=== PATIENT | male | born 1935 | race Hispanic/Latino ===

== ENCOUNTER 2016-08-13 10:14 | Observation (INO) | payer MEDICARE, BC ==
[2016-08-13 10:16] VITALS: BMI 21.6
--- NOTE | 2016-08-13 10:31 | ED PDOC ---
Arrival/HPI - General Chief Complaint: Weakness/Neurological Deficit Time Seen by Provider: 08/13/16 10:16 Historian: Patient - History of Present Illness Narrative History of Present Illness (Text): 08/13/16 10:27 A 81 year old male, whose past medical history includes chronic postherpetic neuralgia, Lymphoma on chemoradiation, CAD and anemia, is brought into the emergency department by daughter complaining of generalized fatigue. Patient notes nausea and mild shortness of breath last night. Daughter reports that she brought patient to the hospital because he said he was "going to pass out." Patient denies any fever, vomiting, urinary symptoms, chest pain or any other complaints. PMD: Dr. Bean/Dr. Jj 08/13/16 13:29 Time/Duration: Other (Last night) Symptom Course: Unchanged Quality: Other Context: Home Past Medical History - Provider Review Nursing Documentation Reviewed: Yes - Infectious Disease Hx of Infectious Diseases: None - Tetanus Immunization Tetanus Immunization: Unknown - Cardiac Hx Pacemaker: No - Pulmonary Hx Respiratory Disorders: No - Neurological Hx Paralysis: No - HEENT Hx HEENT Disorder: No Hx Deafness: Yes - Renal Hx Renal Disorder: No - Endocrine/Metabolic Hx Endocrine Disorders: No - Hematological/Oncological Hx Blood Transfusions: Yes Hx Blood Transfusion Reaction: No Hx Lymphoma: Yes - Integumentary Other/Comment: left lower leg multiple growths raised and discolored skin, right lower extremity multiple growths dry discolored skin, lower abd to right flank healing shingles, multiple open red areas to both lower legs, thin dry skin with multiple open red reas to arms as per past hx, now lle dry flakey skin with dry scab, multiple discoloratins ble - Musculoskeletal/Rheumatological Hx Musculoskeletal Disorders: Yes (NERVE DAMAGE R/T SHINGLES) - Gastrointestinal Hx Gastrointestinal Disorders: Yes (constipation) Hx Gastroesophageal Reflux: Yes (but does not take meds) Other/Comment: Colonoscopy and endoscopy in Feb 2015 which were normal;. Gallstones (daughter states patient takes ursodiol ) - Genitourinary/Gynecological Hx Genitourinary Disorders: No - Psychiatric Hx Anxiety: Yes Hx Depression: Yes Hx Emotional Abuse: No Hx Physical Abuse: No Hx Substance Use: No - Surgical History Other/Comment: Enlarged spleen - being seen by Dr Jj and Dr Mcgee - Anesthesia Hx Anesthesia Reactions: No Hx Malignant Hyperthermia: No - Suicidal Assessment Feels Threatened In Home Enviroment: No Family/Social History - Physician Review Nursing Documentation Reviewed: Yes Family/Social History: No Known Family HX Smoking Status: Never Smoked Hx Alcohol Use: Yes (SEVERAL BEERS PER WEEK) Frequency of alcohol use: Socially Hx Substance Use: No Hx Substance Use Treatment: No Allergies/Home Meds Allergies/Adverse Reactions: Allergies No Known Allergies Allergy (Verified 08/13/16 10:21) Home Medications: Home Meds Medication Instructions Recorded Confirmed Quetiapine Fumarate [Seroquel] 25 mg PO HS 03/17/15 08/13/16 Folic Acid 1 mg PO DAILY 11/29/15 08/13/16 Levothyroxine [Levoxyl] 0.025 mg PO DAILY 02/02/16 08/13/16 Mirtazapine [Remeron] 15 mg PO HS 02/02/16 08/13/16 Metoprolol Succinate [Metoprolol 25 mg PO DAILY 08/13/16 08/13/16 Succinate] Pregabalin [Lyrica] 25 mg PO TID 08/13/16 08/13/16 Review of Systems - Physician Review All systems were reviewed & negative as marked: Yes - Review of Systems Constitutional: Fatigue. absent: Weight Change, Fevers Eyes: absent: Vision Changes ENT: absent: Hearing Changes Respiratory: SOB, Cough. absent: Sputum Cardiovascular: ACKERMAN. absent: Chest Pain, Palpitations, Edema, Calf Pain, Orthopnea, Syncope Gastrointestinal: Nausea. absent: Abdominal Pain, Constipation, Diarrhea, Vomiting Genitourinary Male: absent: Dysuria, Frequency, Hematuria, Urinary Output Changes Musculoskeletal: Arthralgias Neurological: absent: Headache, Dizziness Endocrine: absent: Diaphoresis Hemo/Lymphatic: absent: Adenopathy Physical Exam Vital Signs Reviewed: Yes Vital Signs Temp Pulse Resp BP Pulse Ox 08/13/16 12:00 151/72 H 08/13/16 10:16 98.2 F 69 16 144/59 L 100 Temperature: Afebrile Blood Pressure: Normal Pulse: Regular Respiratory Rate: Normal Appearance: Positive for: Well-Appearing, Non-Toxic, Comfortable Pain Distress: None Mental Status: Positive for: Alert and Oriented X 3 - Systems Exam Head: Present: Atraumatic, Normocephalic Pupils: Present: PERRL Extroacular Muscles: Present: EOMI Conjunctiva: Present: Normal Mouth: Present: Moist Mucous Membranes Neck: Present: Normal Range of Motion Respiratory/Chest: Present: Good Air Exchange, Wheezes, Rales (at bases). No: Respiratory Distress, Accessory Muscle Use Cardiovascular: Present: Regular Rate and Rhythm, Normal S1, S2. No: Murmurs Abdomen: Present: Normal Bowel Sounds. No: Tenderness, Distention, Peritoneal Signs Back: Present: Normal Inspection Upper Extremity: Present: Normal Inspection. No: Cyanosis, Edema Lower Extremity: Present: Normal Inspection, NORMAL PULSES, Normal ROM. No: Edema, CALF TENDERNESS Neurological: Present: GCS=15, CN II-XII Intact, Speech Normal Skin: Present: Warm, Dry, Normal Color. No: Rashes Psychiatric: Present: Alert, Oriented x 3, Normal Insight, Normal Concentration Medical Decision Making ED Course and Treatment: 08/13/16 10:27 Impression: A 81 year old male with generalized fatigue. Patient notes nausea and shortness of breath last night but denies any fever, vomiting, urinary symptoms or chest pain. On exam, rales at bases. Differential Diagnosis included but are not limited to: Anemia vs. CHF vs. ACS vs. Electrolyte imbalance vs. UTI Plan: -- Chest xray -- EKG -- Labs -- Urinalysis -- Reassess and disposition Progress Notes: EKG shows NSR at 74 BPM with 1st degree AV block, PVCs, with no changes from prior on 02/02/16. Interpreted by me. 08/13/16 11:33 Labs reviewed. Trop x 1 negative. BNP elevated. Prior echo not available and I am concerned that this could be new onset/worsening chf due to fatigue and physical exam findings vs atypical presenting acs. Cxray read as normal but has rales on exam. Spoke to Dr. Jaffe who admits for PMD Dr. Bean and he agrees with tele observation. Consult placed to his turn laster Dr. Jj. - Lab Interpretations Lab Results: 08/13/16 10:30 08/13/16 10:30 Lab Results 08/13/16 10:30: WBC 2.8 L*, RBC 3.57, Hgb 10.8 L, Hct 30.1 L, MCV 84.3, MCH 30.3 , MCHC 35.9, RDW 15.0 H, Plt Count 132, MPV 8.7, Gran % 63.9, Lymph % (Auto) 23.1, Weld % (Auto) 11.2 H, Eos % (Auto) 1.4 L, Baso % (Auto) 0.4, Gran # 1.77, Lymph # 0.6 L, Weld # 0.3, Eos # 0.0, Baso # 0.01, PT 11.1, INR 1.03, APTT 31.7 H, Sodium 131 L, Potassium 4.8, Chloride 98, Carbon Dioxide 23, Anion Gap 15, BUN 14, Creatinine 0.8, Est GFR ( Amer) > 60, Est GFR (Non-Af Amer) > 60 , Random Glucose 108, Calcium 9.2, Phosphorus 3.2, Magnesium 1.9, Total Bilirubin 2.5 H, AST 28, ALT 27, Alkaline Phosphatase 87, Total Creatine Kinase < 20 L, Troponin I 0.02 D, NT-Pro-B Natriuret Pep 8480 H, Total Protein 6.4, Albumin 4.0, Globulin 2.5, Albumin/Globulin Ratio 1.6, Lipase 68, Blood Type O POSITIVE, Antibody Screen Negative, BBK History Checked Patient has bt I have reviewed the lab results: Yes - RAD Interpretation Radiology Orders: 08/13/16 10:26 CHEST PORTABLE [RAD] Stat - Medication Orders Current Medication Orders: Discontinued Medications Aspirin (Aspirin Chewable) 324 mg PO STAT STA Stop: 08/13/16 12:29 Last Admin: 08/13/16 12:48 Dose: 324 MG Furosemide (Lasix) 40 mg IVP STAT STA Stop: 08/13/16 11:36 Last Admin: 08/13/16 12:00 Dose: 40 MG MAR Blood Pressure Document 08/13/16 12:00 [facility] (Rec: 08/13/16 12:49 [facility] [id number]) Blood Pressure Blood Pressure (100/60-150/90) 151/72 IVP Administration Document 08/13/16 12:00 [facility] (Rec: 08/13/16 12:49 [facility] [id number]) Charges for Administration # of IVP Administrations 1 Ondansetron HCl (Zofran Inj) 4 mg IVP STAT STA Stop: 08/13/16 12:26 Last Admin: 08/13/16 12:48 Dose: 4 MG IVP Administration Document 08/13/16 12:48 [facility] (Rec: 08/13/16 12:48 [facility] [id number]) Charges for Administration # of IVP Administrations 1 - Scribe Statement The provider has reviewed the documentation as recorded by the Leviibhumaira Ruvalcaba Provider Scribe Attestation: All medical record entries made by the Scribe were at my direction and personally dictated by me. I have reviewed the chart and agree that the record accurately reflects my personal performance of the history, physical exam, medical decision making, and the department course for this patient. I have also personally directed, reviewed, and agree with the discharge instructions and disposition. Disposition/Present on Arrival - Present on Arrival Any Indicators Present on Arrival: No History of DVT/PE: No History of Uncontrolled Diabetes: No Urinary Catheter: No History of Decub. Ulcer: No History Surgical Site Infection Following: None - Disposition Have Diagnosis and Disposition been Completed?: Yes Diagnosis: CHF (congestive heart failure) Disposition: HOSPITALIZED Disposition Time: 10:27 Patient Plan: Observation Patient Problems: Current Active Problems Problem Status Diagnosed CHF (congestive heart failure) Acute Condition: FAIR
[2016-08-13 10:40] LABS: ADD MANUAL DIFF? NO
[2016-08-13 10:46] LABS: BASO # 0.01 K/mm3 (0.0-2.0); BASO % 0.4 % (0.0-3.0); EOS % 1.4 % (1.5-5.0); GRAN # 1.77 (1.4-6.5); GRAN % 63.9 % (50.0-68.0); HEMATOCRIT 30.1 % (42.0-52.0); LYMPH # 0.6 (1.2-3.4); LYMPH % 23.1 % (22.0-35.0); MEAN CELL VOLUME 84.3 fL (80.0-105.0); MEAN CORPUSCULAR HEMOGLOBIN 30.3 pg (25.0-35.0); MEAN CORPUSCULAR HGB CONC 35.9 g/dl (31.0-37.0); MEAN PLATELET VOLUME 8.7 fl (7.0-11.0); MONO # 0.3 (0.1-0.6); MONO % 11.2 % (1.0-6.0); PLATELET COUNT 132 10^3/uL (120.0-450.0)
[2016-08-13 10:54] LABS: ALB/GLOB RATIO 1.6 (1.1-1.8); ALKALINE PHOSPHATASE 87 U/L (38-133); ALT/SGPT 27 U/L (7-56); AST/SGOT 28 U/L (15-59); BILIRUBIN,TOTAL 2.5 mg/dL (0.2-1.3); BLOOD UREA NITROGEN 14 mg/dL (7-21); CALCIUM 9.2 mg/dL (8.4-10.5); CARBON DIOXIDE 23 mmol/L (21-33); CHLORIDE 98 mmol/L (98-107); GFR AFRICAN-AMERICAN > 60; GLUCOSE,RANDOM 108 mg/dL (70-110); LIPASE 68 U/L (23-300); MAGNESIUM 1.9 mg/dL (1.7-2.2); PHOSPHOROUS 3.2 mg/dL (2.5-4.5); POTASSIUM 4.8 mmol/L (3.6-5.0); SODIUM 131 mmol/L (132-148); TOTAL PROTEIN 6.4 g/dL (5.8-8.3); WHITE BLOOD COUNT 2.8 10^3/ul (4.5-11.0)
[2016-08-13 10:56] LABS: INR 1.03 (0.93-1.08); PARTIAL THROMBOPLASTIN TIME 31.7 Seconds (23.7-30.8)
[2016-08-13 11:05] LABS: TROPONIN I 0.02 ng/mL
--- NOTE | 2016-08-13 11:29 | RAD ---
HISTORY: ... COMPARISON: Comparison is made to the previous study dated 12/01/2015 FINDINGS: LUNGS: No evidence of new infiltrate or consolidation in the lungs. PLEURA: No significant pleural effusion identified, no pneumothorax apparent. CARDIOVASCULAR: Normal. OSSEOUS STRUCTURES: No significant abnormalities. VISUALIZED UPPER ABDOMEN: Normal. OTHER FINDINGS: None. IMPRESSION: No active disease.
--- NOTE | 2016-08-13 17:48 | CARD ---
APPROVED REPORT EKG Measurement Heart [id number] [id number] <Conclusion> Sinus rhythm with 1st degree AV block with frequent premature ventricular complexes Left ventricular hypertrophy with repolarization abnormality Abnormal ECG
[2016-08-13 18:30] LABS: URINE BILIRUBIN NEGATIVE (NEGATIVE); URINE BLOOD NEGATIVE (NEGATIVE); URINE GLUCOSE (UA) NEGATIVE (NEGATIVE); URINE KETONE NEGATIVE (NEGATIVE); URINE LEUKOCYTE ESTERASE NEGATIVE Leu/uL (NEGATIVE); URINE PROTEIN NEGATIVE mg/dL (<30 mg/dL); URINE UROBILINOGEN 0.2 E.U./dL (<1 E.U./dL)
[2016-08-13 18:31] LABS: URINE APPEARANCE CLEAR (CLEAR); URINE COLOR YELLOW (YELLOW)
[2016-08-13] MEDS ORDERED: Oxycodone/Acetaminophen 5/325 mg Tab PO PRN (20:58)
[2016-08-14 06:58] VITALS: O2SAT 93
--- NOTE | 2016-08-14 09:30 | CON ---
DATE: 08/14/2016 The patient is currently in the ER, being admitted to telemetry. 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 In addition to retroperitoneal and mediastinal disease, his bone marrow was i nvolved and he was pancytopenia and as a result, he was started on Rituxan. He initially had weekly Rituxan x 4 and now he is getting it once a month and his counts have dramatically improved. The pat mahsa does have a history of abnormal cardiogram and he was supposed to see his business development director in [place] as he had an EKG done preop at their facility in [place] in the business development director's office a nd it showed first degree AV block and the business development director was supposed to see him some time in the ensu ing week or so. In the meantime, patient has been getting Rituxan as far as the treatment for lympho ma is concerned. The last treatment was about a week ago and the expected findings post Rituxan are usually transient leukopenia, neutropenia which improves on its own, but his hemoglobin and hematocri t have been stable. The patient comes to the ER complaining of new onset of generalized fatigue, daksha sea, mild shortness of breath and patient felt that he was almost going to pass out. Denies any feve r, vomiting, urinary symptoms, chest pain or any other complaints. PAST MEDICAL HISTORY: Significant for chronic herpetic neurologia for many years on the right side i n the right costal margin, which is old and not new and he has been on several medications for the sa me. More importantly, recently, he was started on Lyrica low-dose to see if it would help the posthe rpetic pain. He was taking small amounts of medication with oxycodone for relief of pain along with topical anesthetics. The patient was scheduled for cataract surgery, which has been on hold at this time pending cardiology clearance. 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 PHYSICAL EXAMINATION: At the time of admission: GENERAL: Reveals the patient to be awake, alert. VITAL SIGNS: T-max is 98.4, pulse 69, respirations 16, blood pressure is 144/59, pulse ox is 100%. The patient is afebrile. HEENT: Head is normocephalic, atraumatic. Conjunctivae pale. Sclerae are anicteric. Pupils are eq ually reactive to light and accommodation. Examination of the oropharynx reveals moist mucous membra shilpa. No oropharyngeal lesions are noted. NECK: Supple. There is no adenopathy. LUNGS: Reveals wheezes and rales at the bases. The patient is in no acute distress without any acce ssory muscle use. CARDIOVASCULAR: Reveals S1 and S2 to be normal. No significant murmurs are heard. ABDOMEN: Soft, nontender. The patient has chronic pain of the right costal margin where he has had the postherpetic neuralgic pain. There is no evidence of any tenderness, rebound, rigidity or guardi ng. No masses are felt. BACK: There is no costovertebral angle tenderness. There is no spinal tenderness. EXTREMITIES: Upper and lower extremities reveals no cyanosis or edema at this time. There is no pam f tenderness in the lower extremities. NEUROLOGIC: Higher functions are present. No focal deficits are noted. SKIN: Dry. No skin lesions are noted. No significant rashes are noted. 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 LABORATORIES: Revealed a white count of 2.8, hemoglobin 10.8, hematocrit 30.1, platelet count is 132 ,000. Sodium is 131, K is 4.8, chloride is 98, CO2 is 29, BUN is 14, creatinine 0.8 and blood sugar is 108. The patient's chest x-ray does not show any significant changes such as congestive heart mehran lure. EKG is abnormal showing AV block with PVCs. The patient's BNP is elevated greater than 8000. The troponin is 0.02. Albumin is 4 and globulin 2.5, A/G ratio 1.6. ASSESSMENT NOTES AND PLAN: In view of the fact that the patient has symptoms in this elderly male wi th an abnormal EKG and a history of underlying cardiac dysfunction, it would be prudent to admit the patient at least for observation and see how things go. Getting cardiology involved would be also an appropriate idea while the patient is getting IV Lasix. Rituxan, the type of treatment that he is g krista, does not have any cardiotoxicity, but comorbid conditions existing in this patient could be a causative factor for some of his symptoms. Definitely getting cardiology to assess him to see if he needs anything else such as assessment for the functionality of his sinus node to make sure he does not have tachybrady syndrome would be also appropriate. I will speak to the family and I will also s peak to Dr. Rico regarding my concerns and recommendations. Thank you for allowing me to participate in the management of this patient. Clover Jj MD cc: [id number] TT: 08/14/2016 09:30:46 Confirmation # [id number] Dictation # [id number]
[2016-08-14] MEDS ORDERED: Metoprolol Succinate 25 mg XL Tab PO SCH (10:00)
[2016-08-14] MEDS ORDERED: Levothyroxine 25 MCG TAB PO SCH (10:00)
[2016-08-14 13:09] VITALS: PULSE 61
[2016-08-14 19:56] VITALS: BP 130/67; RESP 20; TEMP 98.8
--- NOTE | 2016-08-15 06:04 | HP ---
CHIEF COMPLAINT/HISTORY OF PRESENT ILLNESS: This is an 81-year-old male who [facility] with a past medical history of postherpetic neuralgia, lymphoma on radiation, coronary artery dis ease, anemia. The patient is not able to give a history, so I spoke with the patient's daughter. Camilla gerardo states that she was awoken by the patient and was asking about going to the Emergency Room. The pa tiealverto was having nausea and mild shortness of breath, although the patient does not complain of this. He mainly complains of right lower quadrant pain in the area that he had a shingles outbreak. He h ad a full evaluation with pain management and other various oral medications that have not helped his symptoms. He said he is not sure but he may have passed out, although there is no evidence of this from the patient's daughter, who was giving part of the history. He has no complaints of any nausea, no vomiting, no dysuria, frequency, no nocturia, no weakness in the arms or legs. No chest pain or shortness of breath. He has no other symptoms. He says the pain is 6-10/10 at time. It has a wide range. ALLERGIES: No known drug allergies. HOME MEDICATIONS: Seroquel, folic acid, , metoprolol, Lyrica. PAST MEDICAL HISTORY: 1. Right lymphoma. 2. Postherpetic neuralgia, 3. Dyslipidemia 4. Hypertension 5. GERD. 6. Splenomegaly. PAST SURGICAL HISTORY: Back surgery. SOCIAL HISTORY: He was a smoker, but quit 25 years ago. He has chronic anemia. He does drink beers regularly. FAMILY HISTORY: Noncontributory. PHYSICAL EXAMINATION: VITAL SIGNS: The patient has a temperature of 97.4, pulse of 70, blood pressure 103/48, respirations 61, O2 saturation 93%, height is 5 feet 8 inches, weight is 140 pounds, BMI is 21. GENERAL: Patient lying in bed, flat, and in no apparent distress. HEAD AND NECK EXAM: Atraumatic, normocephalic. Conjunctivae are pink. Throat clear and mouth with moist mucosa. Oropharynx benign. EYES: Extraocular movements are intact. PERRLA. NECK: Supple. No JVD, thyromegaly, or adenopathy. No bruits. HEART: S1 and S2 regular rate and rhythm. No murmurs, rubs, or gallops. LUNGS: Clear to auscultation bilaterally. No wheezing rales or rhonchi appreciated. No retraction s on exam. ABDOMEN: Soft, nontender, nondistended. Bowel sounds are positive in all quadrants. No rebound. No hepatosplenomegaly. EXTREMITIES: No cyanosis, clubbing, or edema. NEURO: No facial asymmetry, tongue is midline, no uvula deviation. Power is 5/5 in upper extremity and 5/5 in lower extremity. Sensation is normal in upper extremity and lower extremity. PSYCH: Awake, alert, oriented x3. No anxiety or depression symptoms. Good insight. Normal affec t. : No CVA tenderness VASCULAR: 2+ pulses in carotid and pedal pulses. SKIN: No erythema or abnormal nodules noted. SPINE: Normal curvature. LYMPHADENOPATHY: No anterior cervical or posterior cervical adenopathy. No inguinal adenopathy. LABORATORY DATA: White count of 2.8, hemoglobin 10.8, platelet count is 132. INR is 1.03. Sodium i s 131. His troponin is 0.02. Magnesium is 1.9. Phosphorus 3.2. He had a urinalysis, ketones negat tim, blood is negative, nitrites are negative. His EKG shows sinus rhythm at 74, first degree AV block. He has QTC 441. He had a chest x-ray done that shows no active disease. ASSESSMENT: 1. Postherpetic neuralgia. 2. Stage IV marginal zone lymphoma on Rituxan. 3. Lymphopenia. 4. . 5. Hypothyroidism. PLAN: The patient is currently comfortable. He was continued on his levothyroxine. He is on his Ly mckay for his postherpetic neuralgia. He is going to continue his Seroquel. I spoke to the patient's daughter. No significant issues will ascertain. The patient is going to be seen by Dr. Jj. I will discharge the patient home to have him follow up. CONDITION: Stable. ACTIVITY: Increase as tolerated. Dusty Rico MD cc: [id number] TT: 08/15/2016 06:03:51 ilda
== END 2016-08-14 19:46 | disposition home or self-care (01) ==
LOC: ED 10:14 → ERH 12:22 → 2RSO 20:49
PROVIDERS: ADMIT Internal Medicine Nephrology; ATTEND Internal Medicine Nephrology
DX: I44.0 Atrioventricular block, first degree (principal); I49.3 Ventricular premature depolarization; I11.0 Hypertensive heart disease with heart failure; I50.9 Heart failure, unspecified; C85.90 Non-Hodgkin lymphoma, unspecified, unspecified site; D61.818 Other pancytopenia; B02.29 Other postherpetic nervous system involvement; E78.5 Hyperlipidemia, unspecified; K21.9 Gastro-esophageal reflux disease without esophagitis; R16.1 Splenomegaly, not elsewhere classified; E03.9 Hypothyroidism, unspecified; R53.83 Other fatigue; Z87.891 Personal history of nicotine dependence
CPT/HCPCS: 71010; 80053; 81003; 82550; 83690; 83735; 83880; 84100; 84484; 85025; 85610; 85730; 86850; 86900; 93005; 96374; 96375; 96376; 99285; G0378; J1940; J2405

== ENCOUNTER 2017-07-14 17:26 | Inpatient (IN) | payer MEDICARE, BC ==
--- NOTE | 2017-07-14 17:53 | ED PDOC ---
Arrival/HPI - General Chief Complaint: Altered Mental Status Time Seen by Provider: 07/14/17 17:44 - History of Present Illness Narrative History of Present Illness (Text): 07/14/17 17:51 82 yo male, h/o of lymphoma, not on chemo, post herpetic neuralgia, presents with increased weakness, cough x2 days. daughter notes increased confusion. no c /o of pain, cp, abdominal pain, diarrhea. daughter reports pt is baseline mildly confused, however confusion is worse than baseline. pt currently oriented x 2. Past Medical History - Infectious Disease Hx of Infectious Diseases: None - Tetanus Immunization Tetanus Immunization: Unknown - Cardiac Hx Cardiac Disorders: Yes Hx Hypertension: Yes - Pulmonary Hx Respiratory Disorders: No Hx Asthma: No - Neurological Hx Neurological Disorder: Yes Hx Dementia: Yes - HEENT Hx HEENT Disorder: No - Renal Hx Renal Disorder: No - Endocrine/Metabolic Hx Endocrine Disorders: No - Hematological/Oncological Hx Blood Disorders: Yes Hx Chemotherapy: Yes Hx Shingles: Yes Other/Comment: lymphoma - Integumentary Hx Dermatological Disorder: No - Musculoskeletal/Rheumatological Hx Musculoskeletal Disorders: Yes Hx Falls: No Hx Spinal Stenosis: Yes - Gastrointestinal Hx Gastrointestinal Disorders: No - Genitourinary/Gynecological Hx Genitourinary Disorders: No - Psychiatric Hx Psychophysiologic Disorder: Yes Hx Depression: Yes Hx Substance Use: No - Surgical History Other/Comment: Enlarged spleen - being seen by Dr Jj and Dr Mcgee - Anesthesia Hx Anesthesia: Yes Hx Anesthesia Reactions: No Hx Malignant Hyperthermia: No - Suicidal Assessment Feels Threatened In Home Enviroment: No Family/Social History Family/Social History: Unknown Family HX Smoking Status: Former Smoker Hx Alcohol Use: Yes Hx Substance Use: No Hx Substance Use Treatment: No Allergies/Home Meds Allergies/Adverse Reactions: Allergies onabotulinumtoxinA [From Botox] Allergy (Verified 07/14/17 17:37) DIZZINESS Home Medications: Home Meds Medication Instructions Recorded Confirmed Quetiapine Fumarate [Seroquel] 25 mg PO HS 03/17/15 08/13/16 Folic Acid 1 mg PO DAILY 11/29/15 08/13/16 Levothyroxine [Levoxyl] 0.025 mg PO DAILY 02/02/16 08/13/16 Mirtazapine [Remeron] 15 mg PO HS 02/02/16 08/13/16 Metoprolol Succinate [Metoprolol 25 mg PO DAILY 08/13/16 08/13/16 Succinate] Pregabalin [Lyrica] 25 mg PO TID 08/13/16 08/13/16 Review of Systems - Review of Systems Constitutional: Normal Eyes: Normal ENT: Normal Respiratory: Cough Cardiovascular: Normal Gastrointestinal: Normal Genitourinary Male: Normal Musculoskeletal: Normal Skin: Normal Neurological: Normal Endocrine: Normal Hemo/Lymphatic: Normal Psychiatric: Normal Physical Exam Vital Signs Temp Pulse Resp BP Pulse Ox 07/14/17 22:14 86 18 130/69 95 07/14/17 19:18 127/72 07/14/17 19:16 73 18 127/72 07/14/17 17:37 97.8 F 88 16 159/83 H 96 Temperature: Afebrile Blood Pressure: Normal Pulse: Regular Respiratory Rate: Normal Appearance: Positive for: Well-Appearing, Non-Toxic, Comfortable Pain Distress: None Mental Status: Positive for: other (oriented x 2) Finger Stick Blood Glucose: 134 - Systems Exam Head: Present: Atraumatic, Normocephalic Pupils: Present: PERRL Extroacular Muscles: Present: EOMI Conjunctiva: Present: Normal Mouth: Present: Moist Mucous Membranes Neck: Present: Normal Range of Motion Respiratory/Chest: Present: Good Air Exchange, Other (diminshed at bases). No: Respiratory Distress, Accessory Muscle Use Cardiovascular: Present: Regular Rate and Rhythm, Normal S1, S2. No: Murmurs Abdomen: Present: Tenderness (mild lower), Distention (mild), Normal Bowel Sounds. No: Peritoneal Signs Back: Present: Normal Inspection Upper Extremity: Present: Normal Inspection. No: Cyanosis, Edema Lower Extremity: Present: Normal Inspection. No: Edema Neurological: Present: GCS=15, CN II-XII Intact, Speech Normal Skin: Present: Warm, Dry, Normal Color. No: Rashes Psychiatric: Present: Alert, Oriented x 3, Normal Insight, Normal Concentration Medical Decision Making ED Course and Treatment: 07/14/17 17:53 ams- r/o infectious metabolic intracranial etiology - labs imaging pending. 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, pending labs, imaging, reassessment, and final dispo - Lab Interpretations Lab Results: 07/14/17 18:10 07/14/17 18:10 Lab Results 07/14/17 19:55: Urine Color Light yellow, Urine Appearance Clear, Urine pH 6.5, Ur Specific [place] 1.015, Urine Protein Trace H, Urine Glucose (UA) Negative, Urine Ketones Negative, Urine Blood Trace-intact H, Urine Nitrate Negative, Urine Bilirubin Negative, Urine Urobilinogen 0.2, Ur Leukocyte Esterase Negative , Urine RBC 0 - 2, Urine WBC 0 - 2, Ur Epithelial Cells 0 - 2, Urine Bacteria Mod 07/14/17 18:10: Influenza Typ A,B (EIA) Negative for flu a/b 07/14/17 18:10: Sodium 134, Potassium 3.9, Chloride 98, Carbon Dioxide 24, Anion Gap 15, BUN 17, Creatinine 1.1, Est GFR ( Amer) > 60, Est GFR (Non- Af Amer) > 60, Random Glucose 113 H, Calcium 9.5, Magnesium 2.0, Total Bilirubin 2.3 H, AST 25, ALT 29, Alkaline Phosphatase 74, Lactate Dehydrogenase 405, Total Creatine Kinase 64, Troponin I 0.02, NT-Pro-B Natriuret Pep 39560 H, Total Protein 6.8, Albumin 4.2, Globulin 2.6, Albumin/Globulin Ratio 1.6, Lipase 92 07/14/17 18:10: PT 11.3, INR 0.99, APTT 31.7 07/14/17 18:10: WBC 7.3 D, RBC 4.31, Hgb 13.3 L, Hct 37.1 L, MCV 86.1, MCH 30.9 , MCHC 35.8, RDW 13.3, Plt Count 173, MPV 9.5, Gran % 66.9, Lymph % (Auto) 23.3 , [place] % (Auto) 9.0 H, Eos % (Auto) 0.5 L, Baso % (Auto) 0.3, Gran # 4.89, Lymph # (Auto) 1.7, [place] # (Auto) 0.7 H, Eos # (Auto) 0.0, Baso # (Auto) 0.02 07/14/17 17:42: POC Glucose (mg/dL) 134 H - RAD Interpretation Radiology Orders: 07/14/17 17:50 HEAD W/O CONTRAST [CT] Stat CHEST PORTABLE [RAD] Stat 07/14/17 18:18 ABD & PELVIS IV CONTRAST ONLY [CT] Stat - Medication Orders Current Medication Orders: Folic Acid (Folic Acid) 1 mg PO DAILY [facility] Last Admin: 07/15/17 09:09 Dose: 1 mg Levothyroxine Sodium (Synthroid) 25 mcg PO ACB [facility] Last Admin: 07/15/17 08:27 Dose: 25 mcg Metoprolol Succinate (Toprol Xl) 25 mg PO DAILY [facility] Last Admin: 07/15/17 09:09 Dose: 25 mg Pregabalin (Lyrica) 25 mg PO TID [facility] Last Admin: 07/15/17 09:09 Dose: 25 mg Discontinued Medications Furosemide (Lasix) 40 mg IVP STAT STA Stop: 07/14/17 19:13 Last Admin: 07/14/17 19:18 Dose: 40 mg MAR Blood Pressure Document 07/14/17 19:18 GMD (Rec: 07/14/17 19:18 GMD [facility] [id number]) Blood Pressure Blood Pressure (100/60-150/90) 127/72 IVP Administration Document 07/14/17 19:18 GMD (Rec: 07/14/17 19:[address] [facility] [id number] Charges for Administration # of IVP Administrations 1 Disposition/Present on Arrival - Present on Arrival Any Indicators Present on Arrival: No History of DVT/PE: No History of Uncontrolled Diabetes: No Urinary Catheter: No History of Decub. Ulcer: No History Surgical Site Infection Following: None - Disposition Have Diagnosis and Disposition been Completed?: Yes Diagnosis: Acute CHF, Altered mental status, unspecified, Closed T12 fracture, Gallstone Disposition: HOSPITALIZED Disposition Time: 07:00 Patient Problems: Current Active Problems Problem Status Onset Acute CHF Acute Altered mental status, unspecified Acute Closed T12 fracture Acute Gallstone Acute Condition: FAIR
[2017-07-14 18:52] LABS: BASO # 0.02 K/mm3 (0.0-2.0); BASO % 0.3 % (0.0-3.0); EOS % 0.5 % (1.5-5.0); GRAN # 4.89 (1.4-6.5); GRAN % 66.9 % (50.0-68.0); HEMOGLOBIN 13.3 g/dL (14.0-18.0); LYMPH # 1.7 (1.2-3.4); LYMPH % 23.3 % (22.0-35.0); MEAN CELL VOLUME 86.1 fl (80.0-105.0); MEAN CORPUSCULAR HEMOGLOBIN 30.9 pg (25.0-35.0); MEAN CORPUSCULAR HGB CONC 35.8 g/dl (31.0-37.0); MEAN PLATELET VOLUME 9.5 fl (7.0-11.0); MONO # 0.7 (0.1-0.6); RBC 4.31 10^6/uL (3.5-6.1); RED CELL DISTRIBUTION WIDTH 13.3 % (11.5-14.5); WHITE BLOOD COUNT 7.3 10^3/ul (4.5-11.0)
[2017-07-14 18:58] LABS: ALB/GLOB RATIO 1.6 (1.1-1.8); ALBUMIN 4.2 g/dL (3.0-4.8); ALT/SGPT 29 U/L (7-56); AST/SGOT 25 U/L (17-59); BLOOD UREA NITROGEN 17 mg/dL (7-21); CALCIUM 9.5 mg/dL (8.4-10.5); GFR AFRICAN-AMERICAN > 60; GFR NON-AFRICAN AMERICAN > 60; LIPASE 92 U/L (23-300)
[2017-07-14 19:05] LABS: B-TYPE NATRIURETIC PEPTIDE 10300 pg/mL (0-450)
[2017-07-14 19:11] LABS: TROPONIN I 0.02 ng/mL
[2017-07-14 19:20] LABS: INR 0.99 (0.93-1.08); PARTIAL THROMBOPLASTIN TIME 31.7 Seconds (25.1-36.5); PROTHROMBIN TIME 11.3 SECONDS (9.4-12.5)
[2017-07-14] MEDS ORDERED: Iohexol 350 MG/100 ML VIAL ONE (19:43)
--- NOTE | 2017-07-14 20:25 | ED PDOC ---
Physical Exam Vital Signs Temp Pulse Resp BP Pulse Ox 07/14/17 19:18 127/72 07/14/17 19:16 73 18 127/72 07/14/17 17:37 97.8 F 88 16 159/83 H 96 Finger Stick Blood Glucose: 134 Medical Decision Making ED Course and Treatment: 07/14/17 20:23 Patient signed out to me by Dr. Melendez. Following discussion with Dr. Rico for admission. Awaiting Head CT and Abdomen/Pelvis CT prior to full admission. 07/14/17 21:[address] Rico. Notified results of both CTs. Would like to consult in the AM with Neurology, Dr. Davila, and Neurosurgery. Re-evaluation Time: 21:44 Reassessment Condition: Unchanged - Lab Interpretations Lab Results: 07/14/17 18:10 07/14/17 18:10 Lab Results 07/14/17 19:55: Urine Color Light yellow, Urine Appearance Clear, Urine pH 6.5, Ur Specific [place] 1.015, Urine Protein Trace H, Urine Glucose (UA) Negative, Urine Ketones Negative, Urine Blood Trace-intact H, Urine Nitrate Negative, Urine Bilirubin Negative, Urine Urobilinogen 0.2, Ur Leukocyte Esterase Negative , Urine RBC 0 - 2, Urine WBC 0 - 2, Ur Epithelial Cells 0 - 2, Urine Bacteria Mod 07/14/17 18:10: Influenza Typ A,B (EIA) Negative for flu a/b 07/14/17 18:10: Sodium 134, Potassium 3.9, Chloride 98, Carbon Dioxide 24, Anion Gap 15, BUN 17, Creatinine 1.1, Est GFR ( Amer) > 60, Est GFR (Non- Af Amer) > 60, Random Glucose 113 H, Calcium 9.5, Magnesium 2.0, Total Bilirubin 2.3 H, AST 25, ALT 29, Alkaline Phosphatase 74, Lactate Dehydrogenase 405, Total Creatine Kinase 64, Troponin I 0.02, NT-Pro-B Natriuret Pep 91683 H, Total Protein 6.8, Albumin 4.2, Globulin 2.6, Albumin/Globulin Ratio 1.6, Lipase 92 07/14/17 18:10: PT 11.3, INR 0.99, APTT 31.7 07/14/17 18:10: WBC 7.3 D, RBC 4.31, Hgb 13.3 L, Hct 37.1 L, MCV 86.1, MCH 30.9 , MCHC 35.8, RDW 13.3, Plt Count 173, MPV 9.5, Gran % 66.9, Lymph % (Auto) 23.3 , [place] % (Auto) 9.0 H, Eos % (Auto) 0.5 L, Baso % (Auto) 0.3, Gran # 4.89, Lymph # (Auto) 1.7, [place] # (Auto) 0.7 H, Eos # (Auto) 0.0, Baso # (Auto) 0.02 07/14/17 17:42: POC Glucose (mg/dL) 134 H I have reviewed the lab results: Yes Interpretation: Abnormal lab values (elevated BNP) - RAD Interpretation Narrative RAD Interpretations (Text): 07/14/17 21:26 CT Head Without Intravenous Contrast Dictated and Authenticated by: Shelley Robert MD FINDINGS: Brain: There is cerebral and cerebellar cortical volume loss compatible with the patient's age. Scattered low density areas in the periventricular white matter and basal ganglia probably reflect chronic small vessel ischemic changes. Vascular calcifications are present. . No abnormal extraaxial or parenchymal fluid collections. Posterior fossa is unremarkable. Ventricles: Focal 1 cm hyperdense lesion of the third ventricle, unclear if this represents a vascular lesion or colloid cyst, followup with MRI or correlation with prior imaging would be helpful. The ventricles and basilar cisterns are prominant likely related to chronic volume loss. Bones/joints: . No acute fracture. Soft tissues: within normal limits Sinuses: Mild mucosal thickening in the ethmoid sinuses present. Mastoid air cells: Unremarkable as visualized. No mastoid effusion. IMPRESSION: Focal 1 cm hyperdense lesion of the third ventricle, unclear if this represents a vascular lesion /aneurysm or colloid cyst or hemorrhage., followup with MRI or correlation with prior imaging would be helpful.There are low-attenuation areas in the periventricular white matter and basal ganglia, probably reflecting chronic ischemic changes. However, if there is clinical concern for an acute infarction, followup MRI could be useful. 07/14/17 21:27 CT Abdomen and Pelvis With Intravenous Contrast Dictated and Authenticated by: Johann Lewis MD FINDINGS: Lower thorax: Dependent bilateral lower lobe air space opacities most compatible with atelectasis. ABDOMEN: Liver: Subcentimeter hepatic hypodensities are too small to characterize but stable. Gallbladder and bile ducts: Multiple gallstones are present. No pericholecystic inflammatory changes to suggest cholecystitis. Pancreas: The pancreas is unremarkable. Spleen: The spleen is unremarkable. Adrenals: The adrenal glands are unremarkable. Kidneys and ureters: Moderate bilateral perinephric stranding, nonspecific but stable compared to prior. Bilateral renal cysts are present, as well as other subcentimeter hypodensities which are too small to characterize. Symmetric renal enhancement without hydronephrosis. Stomach and bowel: No evidence of bowel obstruction. No pericolonic inflammatory stranding. Appendix: A normal appendix is identified. PELVIS: Bladder: No focal wall thickening of the urinary bladder. Reproductive: Unremarkable as visualized. ABDOMEN and PELVIS: Intraperitoneal space: Unremarkable. No free air. No significant fluid collection. Bones/joints: New moderate compression deformity of the superior endplate of T12. No definite evidence of acuity. Bones are qualitatively osteopenic. Soft tissues: No soft tissue swelling. Vasculature: Atherosclerotic calcification affects the aorta and iliac arteries. No aortic aneurysm. Lymph nodes: No enlarged lymph nodes. IMPRESSION: 1. Cholelithiasis without CT evidence of cholecystitis. Correlate with ultrasound if needed. 2. New moderate compression deformity of the superior endplate of T12. No definite evidence of acuity. 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 - Medication Orders Current Medication Orders: Discontinued Medications Furosemide (Lasix) 40 mg IVP STAT STA Stop: 07/14/17 19:13 Last Admin: 07/14/17 19:18 Dose: 40 mg MAR Blood Pressure Document 07/14/17 19:18 GMD (Rec: 07/14/17 19:18 [place]MD [facility] [id number] Blood Pressure Blood Pressure (100/60-150/90) 127/72 IVP Administration Document 07/14/17 19:18 GMD (Rec: 07/14/17 19:18 GMD [facility] [id number][place] Charges for Administration # of IVP Administrations 1 - Scribe Statement The provider has reviewed the documentation as recorded by the Shantel Lewis Provider Scribe Attestation: All medical record entries made by the Scribe were at my direction and personally dictated by me. I have reviewed the chart and agree that the record accurately reflects my personal performance of the history, physical exam, medical decision making, and the department course for this patient. I have also personally directed, reviewed, and agree with the discharge instructions and disposition. Disposition/Present on Arrival - Present on Arrival Any Indicators Present on Arrival: No History of DVT/PE: No History of Uncontrolled Diabetes: No Urinary Catheter: No History of Decub. Ulcer: No History Surgical Site Infection Following: None - Disposition Have Diagnosis and Disposition been Completed?: Yes Diagnosis: Acute CHF, Altered mental status, unspecified, Closed T12 fracture, Gallstone Disposition: HOSPITALIZED Disposition Time: 21:30 Patient Plan: Admission Condition: STABLE Discharge Instructions (ExitCare): Heart Failure (ED) Referrals: Trevon Mitchell, [Primary Care Provider] - Follow up with primary Forms: [employer] ([place]ori)
[2017-07-14 20:42] LABS: PH,URINE 6.5 (4.7-8.0); URINE BILIRUBIN NEGATIVE (NEGATIVE); URINE BLOOD TRACE-INTACT (NEGATIVE); URINE GLUCOSE (UA) NEGATIVE (NEGATIVE); URINE LEUKOCYTE ESTERASE NEGATIVE Leu/uL (NEGATIVE); URINE NITRATE NEGATIVE (NEGATIVE); URINE PROTEIN TRACE mg/dL (<30 mg/dL); URINE UROBILINOGEN 0.2 E.U./dL (<1 E.U./dL)
[2017-07-14 20:44] LABS: URINE APPEARANCE CLEAR (CLEAR); URINE COLOR LIGHT YELLOW (YELLOW)
[2017-07-14 21:12] LABS: URINE BACTERIA MOD (NEG); URINE EPITHELIAL CELLS 0 - 2 /hpf (0-5); URINE RBC 0 - 2 /hpf (0-2); URINE WBC 0 - 2 /hpf (0-6)
[2017-07-15 00:50] VITALS: BMI 22.8
--- NOTE | 2017-07-15 07:38 | CP.PCM.PN ---
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 There is no hydrocephalus Pt is scheduled for MRI Unless MRI shows that the pathology is anything but colloid cyst reconsult No treatment is necessary for this colloid cyst Objective - Vital Signs/Intake and Output Vital Signs (last 24 hours): Temp Pulse Resp BP Pulse Ox 97.5 F L 71 20 120/58 L 94 L 07/15/17 00:01 07/15/17 05:46 07/15/17 00:01 07/15/17 00:01 07/15/17 00:01 Intake and Output: 07/15/17 07/15/17 06:59 18:59 Intake Total 420 Output Total 400 Balance 20 - Medications Medications: Current Medications Folic Acid (Folic Acid) 1 mg PO DAILY [facility] Levothyroxine Sodium (Synthroid) 25 mcg PO ACB [facility] Metoprolol Succinate (Toprol Xl) 25 mg PO DAILY [facility] Pregabalin (Lyrica) 25 mg PO TID [facility] - Labs Labs: PT 11.3 SECONDS (9.4-12.5) 07/14/17 18:10 INR 0.99 (0.93-1.08) 07/14/17 18:10 APTT 31.7 Seconds (25.1-36.5) 07/14/17 18:10
--- NOTE | 2017-07-15 07:52 | CT ---
PROCEDURE: CT HEAD WITHOUT CONTRAST. HISTORY: ams COMPARISON: 01/31/2014 TECHNIQUE: Axial computed tomography images were obtained through the head/brain without intravenous contrast. Radiation dose: Total exam DLP = 1333 mGy-cm. This CT exam was performed using one or more of the following dose reduction techniques: Automated exposure control, adjustment of the mA and/or kV according to patient size, and/or use of iterative reconstruction technique. FINDINGS: HEMORRHAGE: No intracranial hemorrhage. BRAIN: There is a calcification in the region of the foramen of Monro most likely representing a colloid cyst. This measures 5 x 8 mm. There is no associated hydrocephalus. Chronic microvascular changes are seen in the periventricular and deep white matter VENTRICLES: Unremarkable. No hydrocephalus. CALVARIUM: Unremarkable. PARANASAL SINUSES: Unremarkable as visualized. No significant inflammatory changes. MASTOID AIR CELLS: Unremarkable as visualized. No inflammatory changes. OTHER FINDINGS: The report concurs with the preliminary [facility] report IMPRESSION: No acute intracranial findings.
--- NOTE | 2017-07-15 08:01 | CT ---
PROCEDURE: CT Abdomen and Pelvis without intravenous contrast HISTORY: lower abd pain COMPARISON: 02/02/2016 TECHNIQUE: Without contrast. Contrast Dose: Radiation dose: Total exam DLP = 907 mGy-cm. This CT exam was performed using one or more of the following dose reduction techniques: Automated exposure control, adjustment of the mA and/or kV according to patient size, and/or use of iterative reconstruction technique. FINDINGS: LOWER THORAX: Unremarkable. LIVER: Unremarkable. No gross lesion or ductal dilatation. GALLBLADDER AND BILE DUCTS: Gallstones with no evidence of cholecystitis PANCREAS: Unremarkable. No gross lesion or ductal dilatation. SPLEEN: Unremarkable. ADRENALS: Unremarkable. No mass. KIDNEYS AND URETERS: Unremarkable. No hydronephrosis. No solid mass. There is chronic perinephric stranding VASCULATURE: Unremarkable. No aortic aneurysm. BOWEL: Unremarkable. No obstruction. No gross mural thickening. APPENDIX: Unremarkable. Normal appendix. PERITONEUM: Unremarkable. No free fluid. No free air. LYMPH NODES: Unremarkable. No enlarged lymph nodes. BLADDER: Unremarkable. REPRODUCTIVE: Unremarkable. BONES: There is a T12 compression fracture. This is a new finding. The exact age of the fracture is uncertain. There is spinal stenosis from L3 through S1 OTHER FINDINGS: The report concurs with the preliminary [facility] report IMPRESSION: No acute intra-abdominal findings.
--- NOTE | 2017-07-15 08:10 | RAD ---
HISTORY: cough COMPARISON: Portable chest 08/13/2016. FINDINGS: Examination is captured in apical lordotic type matter. LUNGS: No active pulmonary disease. PLEURA: No significant pleural effusion identified, no pneumothorax apparent. CARDIOVASCULAR: Normal. OSSEOUS STRUCTURES: No significant abnormalities. VISUALIZED UPPER ABDOMEN: Normal. OTHER FINDINGS: None. IMPRESSION: No interval acute cardiopulmonary disease appreciated. If symptoms persist or worsen follow-up chest radiography is recommended.
[2017-07-15] MEDS: Levothyroxine 25 MCG TAB PO SCH (08:27)
[2017-07-15] MEDS: Metoprolol Succinate 25 mg XL Tab PO SCH (09:09)
--- NOTE | 2017-07-15 12:27 | CARD ---
APPROVED REPORT EXAM: Two-dimensional and M-mode echocardiogram with Doppler and color Doppler. INDICATION Congestive Heart Failure 2D DIMENSIONS Left Atrium (2D)4.7 (1.6-4.0cm)IVSd1.5 (0.7-1.1cm) LVDd4.8 (3.9-5.9cm)LVOT Diameter2.6 (1.8-2.4cm) PWd1.3 (0.7-1.1cm)LVDs3.7 (2.5-4.0cm) FS (%) 22.0 %LVEF (%)44.4 (>50%) M-Mode DIMENSIONS Aortic Root2.90 (2.2-3.7cm)Aortic Cusp Exc.0.70 (1.5-2.0cm) Aortic Valve AoV Peak Gglrjomh571.0cm/sAoV SYC437.0cmAO Peak GR.85mmHg LVOT Peak Zuxpiwfm16.4cm/sLVOT VTI15.20cmAO Mean GR.45mmHg ELEANOR (VMAX)0.21ch0RKV (VTI)0.70cm2 Mitral Valve E/A ratio0.0 TDI E/Lateral E'0.0E/Medial E'0.0 Tricuspid Valve TR Peak [id number]/sRAP [id number] Peak Gr.31mmHg [id number] LEFT VENTRICLE The left ventricle is normal size. There is mild to moderate concentric left ventricular hypertrophy. The systolic function is mildly impaired.EF-45% There is mild to moderate hypokinesis in the apical anterior wall. Transmitral Doppler flow pattern is Grade III-reversible restrictive diastolic dysfunction. No left ventricle thrombus noted on this study. There is no ventricular septal defect visualized. There is no left ventricular aneurysm. There is no mass noted in the left ventricle. RIGHT VENTRICLE The right ventricle is normal size. There is normal right ventricular wall thickness. The right ventricular systolic function is normal. ATRIA The left atrium is moderately dilated. The right atrium size is normal. The interatrial septum is intact with no evidence for an atrial septal defect. AORTIC VALVE The aortic valve is calcified and displays decreased opening. There is mild aortic regurgitation. There is severe supravalvular aortic stenosis. There is no aortic valvular vegetation. MITRAL VALVE The mitral valve is thickened but opens well. Mitral regurgitation is mild. There is no mitral valve stenosis. There is no evidence of mitral valve prolapse. TRICUSPID VALVE The tricuspid valve leaflets are thickened , but open well. There is mild tricuspid regurgitation.RVBSP-41 mmof hg. There is no tricuspid valve stenosis. There is no tricuspid valve prolapse or vegetation. PULMONIC VALVE The pulmonic valve is borderline thickened. There is trace pulmonic valvular regurgitation. There is no pulmonic valvular stenosis. GREAT VESSELS The aortic root is normal in size. The ascending aorta is normal in size. The pulmonary artery is normal. The IVC is normal in size and collapses >50% with inspiration. PERICARDIAL EFFUSION There is no pleural effusion. There is no pericardial effusion. <Conclusion> The left ventricle is normal size. There is mild to moderate concentric left ventricular hypertrophy. The systolic function is mildly impaired.EF-45% There is mild aortic regurgitation. There is severe supravalvular aortic stenosis. Mitral regurgitation is mild. There is mild tricuspid regurgitation.RVBSP-41 mmof hg. The IVC is normal in size and collapses >50% with inspiration. There is no pericardial effusion.
--- NOTE | 2017-07-15 19:13 | CP.PCM.CON ---
History of Present Illness - History of Present Illness History of Present Illness: Seen and examined at the bedside earlier today, chart reviewed. Request for GI consultation for abdominal pain. HPI: This is an 82-year-old male with a past medical history of lymphoma, hypertension, dementia and postherpetic neuralgia was brought to the emergency room with reports of increasing weakness and coughing 2 days. The patient's daughter had also reported that the patient has increased confusion. No reports of chest pain, nausea, vomiting. The patient is a poor historian, however was able to answer some questions but not in great detail, chart was reviewed and spoke to nursing staff. Patient reports abdominal pain mainly to the right lower quadrant for a while, appetite "so-so". Patient does report some nausea but no vomiting. Admits to constipation, no BM for the past few days. But does not notice any melena or bright red blood with bowel movement. Denies symptoms of acid reflux. This patient went for a CT scan of abdomen and pelvis which reported no acute intra-abdominal findings, there is a T12 compression fracture this is a new finding. Gallstones with no evidence of cholecystitis no enlarged lymph nodes in unremarkable bowel obstruction or gross mural thickening. In review of patient's record he had an EGD EUS on 02/[address] Fraser for abnormal CAT scan and lymph nodes. Found to have gastritis/duodenitis and abnormal celiac lymphadenopathy. Also found to have abnormal mannie hepatis with lymphadenopathy and small pancreatic cyst in the body. Status post FNA and FNB.celiac lymph node biopsy shows small fragments of tissue and mild diffuse B cell infiltrate, the portal lymph node FNA showed numerous small lymphocytes present, the portal lymph node flow cytometry analysis reported findings consistent with a B-cell lymphoma, celiac lymph node FNA mixture of B and T lymphocytes, celiac lymph node flow cytometry analysis showed B-cell lymphoma. The patient did have a PET/CT on 09/09/2016 which showed no evidence of FDG avid tumor or lymphadenopathy, redemonstration of mild splenomegaly without evidence of focal increased FDG uptake. Past medical history: Hypertension, patient currently not on meds, dementia, anemia spherocytosis type, dyslipidemia, postherpetic neuralgia, colon polyps, monilial esophagitis and duodenal lipoma, splenomegaly, lymphoma Surgical history: Back surgery denies any abdominal surgery Social history: Former smoker denies EtOH or drug use Family history: Noncontributory at this time Allergies: No known drug allergies MAR: Medications reviewed as per MAR ROS: Systems reviewed with positive finding see HPI Past Patient History - Infectious Disease Hx of Infectious Diseases: None - Tetanus Immunizations Tetanus Immunization: Unknown - Past Medical History & Family History Past Medical History?: Yes - Past Social History Smoking Status: Former Smoker - CARDIAC Hx Cardiac Disorders: Yes Hx Hypertension: Yes - PULMONARY Hx Respiratory Disorders: No Hx Asthma: No - NEUROLOGICAL Hx Neurological Disorder: Yes Hx Dementia: Yes - HEENT Hx HEENT Problems: No - RENAL Hx Chronic Kidney Disease: No - ENDOCRINE/METABOLIC Hx Endocrine Disorders: No - HEMATOLOGICAL/ONCOLOGICAL Hx Blood Disorders: Yes Hx Chemotherapy: Yes Hx Shingles: Yes Other/Comment: lymphoma - INTEGUMENTARY Hx Dermatological Problems: No - MUSCULOSKELETAL/RHEUMATOLOGICAL Hx Musculoskeletal Disorders: Yes Hx Falls: No Hx Spinal Stenosis: Yes - GASTROINTESTINAL Hx Gastrointestinal Disorders: No - GENITOURINARY/GYNECOLOGICAL Hx Genitourinary Disorders: No - PSYCHIATRIC Hx Psychophysiologic Disorder: Yes Hx Depression: Yes Hx Substance Use: No - SURGICAL HISTORY Other/Comment: Enlarged spleen - being seen by Dr Jj and Dr Mcgee - ANESTHESIA Hx Anesthesia: Yes Hx Anesthesia Reactions: No Hx Malignant Hyperthermia: No Meds Allergies/Adverse Reactions: Allergies Allergy/AdvReac Type Severity Reaction Status Date / Time onabotulinumtoxinA Allergy DIZZINESS Verified 07/14/17 17:37 [From Botox] - Medications Medications: Current Medications Folic Acid (Folic Acid) 1 mg PO DAILY [facility] Last Admin: 07/15/17 09:09 Dose: 1 mg Levothyroxine Sodium (Synthroid) 25 mcg PO ACB [facility] Last Admin: 07/15/17 08:27 Dose: 25 mcg Metoprolol Succinate (Toprol Xl) 25 mg PO DAILY [facility] Last Admin: 07/15/17 09:09 Dose: 25 mg Pregabalin (Lyrica) 25 mg PO TID [facility] Last Admin: 07/15/17 17:36 Dose: 25 mg Physical Exam - Constitutional Appears: No Acute Distress - Head Exam Head Exam: NORMOCEPHALIC - Eye Exam Eye Exam: Normal appearance. absent: Scleral icterus - ENT Exam ENT Exam: Mucous Membranes Moist - Neck Exam Neck exam: Positive for: Normal Inspection - Respiratory Exam Respiratory Exam: NORMAL BREATHING PATTERN. absent: Respiratory Distress - Cardiovascular Exam Cardiovascular Exam: +S1, +S2 - GI/Abdominal Exam GI & Abdominal Exam: Normal Bowel Sounds, Soft, Tenderness. absent: Guarding, Rebound Additional comments: right lower quadrant, no rebound or guarding, no right groin tenderness - Extremities Exam Extremities exam: Positive for: pedal pulses present. Negative for: calf tenderness, pedal edema - Neurological Exam Neurological exam: Alert, Oriented x3 - Skin Skin Exam: Dry, Warm Results - Vital Signs Recent Vital Signs: Last Vital Signs Temp 98.8 F 07/15/17 12:00 Pulse 66 07/15/17 12:00 Resp 20 07/15/17 12:00 BP 147/78 07/15/17 12:00 Pulse Ox 97 07/15/17 06:00 - Labs Result Diagrams: 07/14/17 18:10 07/14/17 18:10 Assessment & Plan - Assessment and Plan (Free Text) Assessment: Assessment: Altered mental status, ct scan head, no bleed or infarct, (+) colloid cyst Elevated BNP, s/p Lasix Right quadrant abdominal pain History of lymphoma History of dementia History of colon polyps Splenomegaly Compression fracture and T12 noted on CT scan Plan: diet as tolerated Pain management pending MRI brain neurology FU Thank you for this consult and follow us to participate in your patient's care, further recommendations based upon clinical course. Seen and discussed with Dr. Garduno.
--- NOTE | 2017-07-15 20:53 | CON ---
DATE: NEUROLOGY CONSULTATION CHIEF COMPLAINT: Confusion. HISTORY OF PRESENT ILLNESS: This is an 82-year-old man with history of lymphoma, not on chemo, postherpetic neuralgia - on Lyrica, history of hereditary spherocytosis, chronic EtOH abuse, hypertension, who presented with increased generalized weakness and cough for past two days, 0029 increased confusion. He had a CT scan of the head that showed a questionable colloid cyst, but no acute intracranial abnormality, just mild generalized atrophy and chronic ischemic changes. Currently he is alert, oriented to person and place and year. Recall in five minutes is 2/3. Poor attention span and slow thought process. He does have some evidence of cognitive impairment at baseline. His blood pressures are stable. No acute events overnight. His echocardiogram showed systolic ejection fraction of 45% with moderate concentric left ventricular hypertrophy and mild tricuspid regurgitation, severe supravalvular aortic stenosis. MEDICATIONS: Reviewed by nurse per reconciliation sheet. REVIEW OF SYSTEMS: A 14-point review of systems is negative except as per the HPI. PAST MEDICAL HISTORY: As above. SOCIAL HISTORY: No illicit drug use, smoking or EtOH abuse at this time. ALLERGIES: ALLERGIES TO BOTOX TYPE A. PHYSICAL EXAMINATION: VITAL SIGNS: Temperature 98, pulse rate of 66, blood pressure 147/78, respiratory rate 20, oxygen saturation 97% on room air. GENERAL: The patient is sitting up in bed, in no acute distress. HEENT: Head is atraumatic, normocephalic. PERRLA. Extraocular muscles intact. NECK: Supple. No JVD, no adenopathy noted. LUNGS: Clear to auscultation. No adventitious sounds. HEART: S1, S2, normal rate and rhythm. No murmurs, rubs or gallops. ABDOMEN: Soft, nontender, nondistended. Bowel sounds present. EXTREMITIES: No clubbing, no cyanosis. Peripheral pulses are 2+ felt bilaterally. NEUROLOGIC: The patient is alert, oriented to person and place. Recall after 5 minutes is 2/3. Poor attention span and slow thought process. Cranial nerves II through XII intact. Motor exam: Slightly increased tone throughout, moves all extremities equally. Sensory exam: Light touch, pinprick, proprioception and vibration intact. DTRs are 2+ throughout. Coordination: [id number] intact. Gait is deferred for now. LABORATORY DATA: Sodium is 134, potassium 3.9, chloride 98, carbon dioxide 24, BUN of 17, creatinine 1.1, random glucose 113. BNP of 10,300. ASSESSMENT AND PLAN: This is an 82-year-old man with past medical history of hereditary spherocytosis, postherpetic neuralgia - on Lyrica, history of lymphoma - not on any chemo, history of hypothyroidism, who presented with generalized weakness, cough for the past two days, mild decrease in mental status because of confusion noticed by daughter. He had elevated BNP. CT of the head showed no acute intracranial abnormalities, a mild colloid cyst which is not causing the symptoms. He has also mild cognitive impairment as well. At this time, his transitional confusional state is likely secondary to underlying possible congestive heart failure, superimposed on generalized deconditioned state with underlying mild cognitive impairment. RECOMMENDATIONS: 1. We will recommend Namenda 10 mg p.o. daily for cognition. 2. Delirium precautions. 3. Mild hydration. 4. Monitor electrolytes . 5. PT and OT evaluation. Thank you for this consult. Donte Davila MD
--- NOTE | 2017-07-15 21:17 | CON ---
DATE: REASON FOR CONSULTATION: Cardiac evaluation, rule out CHF, admitted with altered mental status. BRIEF CLINICAL HISTORY: This is an 82-year-old male with history of lymphoma, brought by the daughter because of the altered mental status and confusion. The patient is not sure why he is here. He is confused, though denies any chest pain, shortness of breath, any palpitation. Denies any documented coronary artery disease, history of dementia, history of hypertension, history of alcohol abuse, history of hereditary spherocytosis, history of pneumonia. PAST MEDICAL HISTORY: Significant for inguinal hernia, tubular adenoma, history of right upper quadrant pain, history of possible lymphoma, history of previous abdominal pain, history of splenomegaly and right quadrant pain, history of hereditary spherocytosis, history of lymphoma, on chemo and radiation, history of lymph node biopsy dated 02/29/2016, admitted with altered mental status, previous cardiac workup, only EKG is available that showed normal sinus of the AV block. No acute ST-T changes noted. CURRENT MEDICATIONS: Patient at home was taking pregabalin, metoprolol succinate 25 mg daily, levothyroxine 0.25 mg, folic acid, Seroquel and Remeron. REVIEW OF SYSTEMS: As per HPI. PHYSICAL EXAMINATION VITAL SIGNS: Temperature afebrile, heart rate 72, blood pressure 136/69. HEENT: PERRLA. Extraocular muscles intact. NECK: Supple. No carotid bruits. No JVD or thyromegaly. CHEST: Clear to auscultation. HEART: S1 and S2 regular. ABDOMEN: Soft. EXTREMITIES: Clubbing and cyanosis negative. LABORATORY DATA: Blood workup as follows: WBC , hemoglobin 13.3, hematocrit 37.1, platelet count 173. Chemistry showed sodium 134, potassium 3.9, chloride , carbon dioxide 24, anion gap of 15, BUN 70, creatinine 1.1. IMPRESSION: History of hereditary spherocytosis, lymphoma, dementia, hypertension, postherpetic neuralgia, dyslipidemia, hypertension, splenomegaly. Patient is complaining of right upper quadrant pain, most likely secondary to splenomegaly. RECOMMENDATION: We will get echo, lipid profile, TSH, hemoglobin A1c. Clinically, the patient does not appear in congestive heart failure. Chest x-ray from yesterday reviewed cardiomegaly, but no evidence of florid pulmonary edema or congestive heart failure noted. Admitting blood workup shows BNP elevated, but patient is not clinically . Continue gentle diuretics given one dose yesterday. Continue beta-alina, continue levothyroxine. We will get echo to assess LV function, lipid profile, TSH, and hemoglobin A1c. Further recommendation will be made after initial workup and clinical course of the patient. We will follow with you. Thank you, Dr. Rico, for providing us the opportunity in taking care of the patient, William Connors. Khurram Duran MD
--- NOTE | 2017-07-16 02:50 | CARD ---
APPROVED REPORT EKG Measurement Heart [id number] <Conclusion> Sinus rhythm with 1st degree AV block with occasional premature ventricular complexes Left ventricular hypertrophy with repolarization abnormality Abnormal ECG
--- NOTE | 2017-07-16 03:17 | HP ---
DATE OF EXAM: 07/15/2017 CHIEF COMPLAINT AND HISTORY OF PRESENT ILLNESS: This is an 82-year-old male who is coming into the hospital because of changes in his mental status. The patient has a past medical history of lymphoma and herpetic neuralgia. The patient has been complaining of increased weakness and coughing. The patient was brought in by his daughter, who noticed that the patient was more confused. The patient was having abdominal pain and diarrhea. The patient's daughter reported that he has confusion at times, but it is worse than it has been in the past. The patient denies any chest pain or shortness of breath. No fevers or chills. No nausea. No vomiting. Patient had a CT scan of the head done and there was an abnormality that was seen and the patient is brought in for further evaluation. Most of the information was taken from the ER and the patient's family and the nursing staff. Patient has no dysuria, frequency, or hematuria. No weakness in the arms or the legs. He does complain of abdominal discomfort at times. He states he follows with Dr. Jj given his underlying confusion and it is difficult to say whether this is his baseline because I do not know him that well. ALLERGIES: TO ONABOTULINUMTOXINA. MEDICATIONS: He is on Seroquel, folic acid, Levoxyl, Remeron, metoprolol, and Lyrica. PAST MEDICAL HISTORY: 1. Enlarged spleen. 2. Lymphoma. 3. Postherpetic neuralgia. 4. Dyslipidemia. 5. Hypertension. 6. GERD. PAST SURGICAL HISTORY: Back surgery. SOCIAL HISTORY: He was a smoker, but quit about 26 years ago. He does have a history of drinking beer. FAMILY HISTORY: Noncontributory. PHYSICAL EXAMINATION: VITAL SIGNS: He has a temperature of 97.9, pulse of 72, blood pressure 136/69, respirations 20, and O2 saturation 97%. Height is 5 feet 9 inches, weight is 162 pounds, and BMI of 24. GENERAL: The patient lying in bed, uncomfortable, and in no acute distress. HEENT: Atraumatic and normocephalic. Anicteric sclerae. Moist mucosa. Agar conjunctivae. No oral lesions. NECK: No JVD, anterior and posterior adenopathy, thyromegaly, or bruits. CARDIOVASCULAR: S1 and S2 regular. No murmur, rubs, or gallop. LUNGS: Clear to auscultation bilaterally. No wheezes, rales, or rhonchi. ABDOMEN: Bowel sounds are positive. Soft, nontender and nondistended. No hepatosplenomegaly. No rebound and no guarding. EXTREMITIES: No cyanosis, clubbing, or edema. NEUROLOGIC: No facial asymmetry. Tongue is midline. No uvula deviation. Power is 5/5 upper extremity and lower extremity. Sensation intact in upper extremity and lower extremity. PSYCHIATRIC: He is awake, alert and oriented x3. No anxiety or depression. He has normal affect. GENITOURINARY: No CVA tenderness. VASCULAR: 2+ pulses in the carotid pulses and pedal pulses. SKIN: No erythema or nodules. SPINE: Shows normal curvature. LABORATORY DATA: White cell count of 7.3, hemoglobin of 13.3, and platelets count of 173. INR is 0.99. Chemistry shows a sodium of 134, potassium 3.9, and creatinine 1.1. He has a proBNP of 10,300. Albumin is 4.2. Urine shows blood that is trace and nitrites are negative. Bilirubin is negative. Serology test shows influenza is negative. He has a chest x-ray that was done that shows no infiltrates. He has a CT of the abdomen and pelvis that shows no acute intraabdominal findings. There is a T12 compression fracture. There is spinal stenosis from L3 to S1. CT of the head done shows no acute intracranial findings. There is a probable colloid cyst that measures 5.8 mm that is seen. ASSESSMENT: 1. Colloid cyst, 5 mm, in the brain. 2. Delirium episode, improved. 3. History of lymphoma. 4. Dyslipidemia. 5. Hypertension. 6. Splenomegaly. 7. T12 compression fracture. 8. Spinal stenosis from L3 to S1. PLAN: The patient is currently comfortable. He has an MRI that I have ordered and the patient is going to be seen by Neurology. I did consult Neurosurgery as well. I reviewed note. No intervention is needed at this time. An MRI is going to be ordered and evaluated for the colloid cyst. The patient is going to continue his folic acid. He is on Synthroid for hypothyroidism. He is going to be on folic acid daily. He has an echo that has been ordered and done. The results of the echo shows an EF 45%. There is also moderate concentric LVH. I did speak to the patient's family. I spoke to the patient's daughter, Ryan, to give an update on the patient's diagnoses and plan of care. I will discontinue telemetry. I have ordered a CT of the abdomen because he was initially complaining of abdominal pain at times with me. I also asked GI to evaluate the patient. Pt will need VNA and home PT. Dusty Rico MD MTDHerson
[2017-07-16 06:23] VITALS: RESP 18; O2SAT 96
--- NOTE | 2017-07-16 09:32 | CP.PCM.CON ---
History of Present Illness - History of Present Illness History of Present Illness: Surjit Williamson D.O. 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 Consultation was ordered for hematology/oncology. Patient was seen and examined at bedside. Patient is notably confused, a poor historian, and only oriented to self. Patient at this time cites no complaints and states that he slept well. No fevers, chills, SOB, cough, or other complaints elicited. No overnight events per nursing staff. Patient is scheduled for MRI today. Review of Systems - Constitutional Constitutional: absent: Anorexia, Chills - EENT Eyes: absent: Discharge, Dry Eye Ears: absent: Ear Discharge, Ear Pain Nose/Mouth/Throat: absent: Epistaxis, Nose Pain - Cardiovascular Cardiovascular: absent: Chest Pain, Diaphoresis - Respiratory Respiratory: absent: Cough, Dyspnea - Gastrointestinal Gastrointestinal: absent: Abdominal Pain, Nausea - Genitourinary Genitourinary: absent: Hematuria, Pyuria - Musculoskeletal Musculoskeletal: absent: Joint Swelling, Muscle Weakness - Integumentary Integumentary: absent: Pruritus, Rash - Neurological Neurological: Confusion. absent: Tremor Past Patient History - Infectious Disease Hx of Infectious Diseases: None - Tetanus Immunizations Tetanus Immunization: Unknown - Past Medical History & Family History Past Medical History?: Yes - Past Social History Smoking Status: Former Smoker - CARDIAC Hx Cardiac Disorders: Yes Hx Hypertension: Yes - PULMONARY Hx Respiratory Disorders: No Hx Asthma: No - NEUROLOGICAL Hx Neurological Disorder: Yes Hx Dementia: Yes - HEENT Hx HEENT Problems: No - RENAL Hx Chronic Kidney Disease: No - ENDOCRINE/METABOLIC Hx Endocrine Disorders: No - HEMATOLOGICAL/ONCOLOGICAL Hx Blood Disorders: Yes Hx Chemotherapy: Yes Hx Shingles: Yes Other/Comment: lymphoma - INTEGUMENTARY Hx Dermatological Problems: No - MUSCULOSKELETAL/RHEUMATOLOGICAL Hx Musculoskeletal Disorders: Yes Hx Falls: No Hx Spinal Stenosis: Yes - GASTROINTESTINAL Hx Gastrointestinal Disorders: No - GENITOURINARY/GYNECOLOGICAL Hx Genitourinary Disorders: No - PSYCHIATRIC Hx Psychophysiologic Disorder: Yes Hx Depression: Yes Hx Substance Use: No - SURGICAL HISTORY Other/Comment: Enlarged spleen - being seen by Dr Jj and Dr Mcgee - ANESTHESIA Hx Anesthesia: Yes Hx Anesthesia Reactions: No Hx Malignant Hyperthermia: No Meds Allergies/Adverse Reactions: Allergies Allergy/AdvReac Type Severity Reaction Status Date / Time onabotulinumtoxinA Allergy DIZZINESS Verified 07/14/17 17:37 [From Botox] - Medications Medications: Current Medications Calcium/Vitamin D (Oscal-D 250 Mg-125 Units Tab) 1 tab PO DAILY [facility] Folic Acid (Folic Acid) 1 mg PO DAILY [facility] Last Admin: 07/15/17 09:09 Dose: 1 mg Levothyroxine Sodium (Synthroid) 25 mcg PO ACB [facility] Last Admin: 07/15/17 08:27 Dose: 25 mcg Memantine (Namenda) 5 mg PO DAILY [facility] Metoprolol Succinate (Toprol Xl) 25 mg PO DAILY [facility] Last Admin: 07/15/17 09:09 Dose: 25 mg Pregabalin (Lyrica) 25 mg PO TID [facility] Last Admin: 07/15/17 17:36 Dose: 25 mg Physical Exam - Constitutional Appears: Non-toxic, No Acute Distress - Head Exam Head Exam: ATRAUMATIC, NORMOCEPHALIC - Eye Exam Eye Exam: EOMI, PERRL - ENT Exam ENT Exam: Mucous Membranes Moist, Normal Oropharynx - Neck Exam Neck exam: Positive for: Normal Inspection - Respiratory Exam Respiratory Exam: Clear to Auscultation Bilateral. absent: Rhonchi, Wheezes - Cardiovascular Exam Cardiovascular Exam: RRR, +S1, +S2 - GI/Abdominal Exam GI & Abdominal Exam: Normal Bowel Sounds, Soft. absent: Distended, Tenderness - Extremities Exam Extremities exam: Negative for: calf tenderness, pedal edema - Neurological Exam Neurological exam: Alert Additional comments: AAOX1 - Skin Skin Exam: Dry, Intact Results - Vital Signs Recent Vital Signs: Last Vital Signs Temp 98.9 F 07/16/17 00:01 Pulse 63 07/16/17 06:00 Resp 18 07/16/17 06:00 BP 146/80 07/16/17 06:00 Pulse Ox 96 07/16/17 06:00 - Labs Result Diagrams: 07/14/17 18:10 07/14/17 18:10 Labs: Laboratory Results - last 24 hr 07/15/17 21:15 POC Glucose (mg/dL) 107 Assessment & Plan - Assessment and Plan (Free Text) Assessment: 82 year old male with a PMH of 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 Consultation was ordered for hematology/oncology. Plan: AMS in the setting of previous mild cognitive impairment Stage IV low-grade marginal zone lymphoma s/p Rituxan Spherocytosis Post-herpetic neuralgia Osteoporosis T12 fracture At this time, we will get MRI imaging of his new T12 fracture to evaluate chronicity and possible relation to lymphoma although this is unlikely related to that and more than likely related to his osteoporosis Compared to previous admissions his WBC, Hgb, and platelets have all improved Will follow Discussed with attending physician - Date & Time Date: 07/16/17 Time: 07:15
--- NOTE | 2017-07-16 09:58 | CON ---
DATE: 07/15/2017 ONCOLOGY CONSULTATION LOCATION: Patient is in room 372, bed 2. HISTORY OF PRESENT ILLNESS: This is an 82-year-old who is well known to me for more than 17 years has a history of inherited spherocytosis with resultant hemolytic anemia, was noted to get progressively pancytopenic in 10/2015 when he was admitted to [facility] with pancytopenia and sepsis; at that time, he had bone marrows done, which showed granulomatous changes in the marrow without any gross evidence of lymphoma at that time. The patient's condition slightly improved and then over the next several months, went on to develop more symptoms of progressive splenomegaly, retroperitoneal adenopathy and progressive anemia, which was unexplained. Patient eventually ended up having upper endoscopy and targeted guided biopsy of the retroperitoneal lymph nodes, which was positive for lymphoma, low-grade marginal zone and based on that, patient was treated with single-agent Rituxan with dramatic reduction in the size of the masses to the point that after 4 cycles of chemotherapy, patient may need complete remission including regression of the spleen as evidenced on PET scans done about 10 months ago. The patient subsequently has been just followed expectantly as far as this lymphoma is concerned. His history is also significant for the fact that he has a significant postherpetic neuralgia involving the right upper chest wall and right upper quadrant, for which he has been on constantly on different medications and more currently about a few months ago was placed on Lyrica. He also had significant valvular aortic stenosis and was assessed both by our telecommunications sales representative in [place], Dr. Duran and then by his telecommunications sales representative in [place] for possible TAVR, but for whatever reasons, medically, did felt that he was not a candidate for it. Patient has baseline cognitive dysfunction to mild degree, but he is able to recognize me and remember events that had taken place with him while I have been caring for him. The patient's blood pressure is stable. He was admitted through the Emergency Room with coughing and new onset of confusion, which is what his daughter had noted and that is what prompted the admission. Patient prior to my even seeing him had an echocardiogram done and the echocardiogram was reported as showing systolic ejection fraction of 45%, moderate concentric left ventricular hypertrophy, mild tricuspid regurgitation and severe supravalvar aortic stenosis. MEDICATIONS: Reviewed by the nurse per reconciliation sheet on the chart. REVIEW OF SYSTEMS: A 14 point review of systems is negative except what is mentioned in the HPI. SOCIAL HISTORY: The patient does not smoke and he does not drink at this point in time. PHYSICAL EXAMINATION GENERAL: The patient is awake and alert, at least to time and place. He is able to recognize me. VITAL SIGNS: Stable. T-max is 98.4, heart rate is 66, blood pressure is 147/78, respirations 20, O2 saturation is 97% on room air. The patient is sitting up in the bed, in no acute distress. HEENT: Head is normocephalic, atraumatic. Conjunctivae are pale. Sclerae are anicteric. NECK: Supple. There is no adenopathy. LUNGS: Clear to percussion without any adventitious sounds. HEART: Examination of the heart reveals S1 and S2 to be normal. Systolic ejection murmur is heard. ABDOMEN: Soft, nontender. Bowel sounds are present. No rebound, rigidity, or guarding is noted. EXTREMITIES: Reveals no cyanosis, clubbing, or edema. Peripheral pulses are 2+ bilaterally. NEUROLOGIC: The patient appears to be alert and oriented to place and person. He is able to recognize me. The patient does have mild cognitive impairment. DATA: Lab data reveals sodium of 134, potassium is 3.9, chloride 98, CO2 24, BUN of 17, creatinine of 1.1, random glucose is 131. BNP was 10,300 in the emergency room. CBC was also reviewed that shows the following: White count is 7.3, hemoglobin 13.3, hematocrit 37, and platelet count is 173,000. ASSESSMENT NOTES AND PLAN: The patient, from an oncologic point of view, had grade IV marginal zone lymphoma, currently clinically in remission with pancytopenia improving. He is admitted to the hospital with change in mental status, coughing and BNP, which is very high, probably related to underlying cardiac dysfunction. Altered mental status could be a problem associated with his heart issues per se, though a systemic inflammatory response from underlying potential infection is the possibility. The patient has hereditary spherocytosis and postherpetic neuralgia, both of which are chronic at this point in time. 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 RECOMMENDATIONS: At this time, expectant wait and watch and follow up with neurologic input as for his cognitive impairment is concerned. We will also speak to telecommunications sales representative if anything can be done besides conservative management as far as severe aortic valvular stenosis is concerned. Speak to Dr. Rico; from my perspective; at this point in time, having abdominal ultrasound to check the status of the liver and spleen would be the most important testing I will be doing and following the CBC serially as he has ongoing hemolysis, for which he has been placed on folic acid. I will continue the Lyrica for now along with his other medications. I will speak to Dr. Rico and make my recommendations to him as well. I will speak to the daughter as well. Thanking you for allowing me to participate in the management of this patient. Time spent with the patient, talking to the daughter and correlating all the information more than 80 minutes. Clover Jj MD
[2017-07-16] MEDS ORDERED: Calcium-Vit D 250 mg-125 Units Tab UD PO SCH (10:00)
[2017-07-16] MEDS ORDERED: Enoxaparin 40 mg Syringe SC SCH (10:00)
--- NOTE | 2017-07-16 10:13 | MRI ---
PROCEDURE: MRI BRAIN WITHOUT CONTRAST HISTORY: brain lesion COMPARISON: 06/28/2014 MRI TECHNIQUE: Multiplanar, multisequence MR images of the brain were obtained without intravenous contrast enhancement. FINDINGS: HEMORRHAGE: None DWI: No evidence of an acute or early subacute infarction. BRAIN PARENCHYMA: No mass effect or edema. Severe chronic microvascular changes are seen in the periventricular white matter. VENTRICLES: Unremarkable. No hydrocephalus. CRANIUM: Unremarkable. ORBITS: Grossly unremarkable. PARANASAL SINUSES/MASTOIDS: Clear VASCULAR SYSTEM: Skull base flow voids intact. OTHER FINDINGS: None. IMPRESSION: No acute intracranial findings
[2017-07-16] MEDS: Metoprolol Succinate 25 mg XL Tab PO SCH (10:53)
[2017-07-16] MEDS: Levothyroxine 25 MCG TAB PO SCH (10:53)
--- NOTE | 2017-07-16 11:12 | US ---
HISTORY: right quadrant pain COMPARISON: Comparison is made to the previous CT dated 07/14/2017 previous ultrasound of the abdomen dated 02/01/2014. TECHNIQUE: Sonographic evaluation of the abdomen. FINDINGS: LIVER: Measures 17.4 cm. Heterogeneous slightly increased echogenicity of the liver parenchyma. No mass. No intrahepatic bile duct dilatation. GALLBLADDER: Gallstones are noted without ultrasound evidence of acute cholecystitis. COMMON BILE DUCT: Measures 3.8 mm. No stones. No dilatation. PANCREAS: Suboptimal assessment of the pancreas due to overlying bowel gas RIGHT KIDNEY: Measures 11.4 x 5.1 x 5.5cm. Normal echogenicity. No calculus, mass, or hydronephrosis. There is cyst seen at the mid to upper pole right kidney measures 2.7 x 2.5 x 2.5 centimeter. LEFT KIDNEY: Measures 11.6 x 6.4 x 6.3cm. Normal echogenicity. No calculus, mass, or hydronephrosis. There is a cyst exophytic from the mid to lower pole left kidney measures 5.6 x 5.6 x 5.4 centimeter. SPLEEN: Normal in size and contour. No mass. AORTA: No aneurysmal dilatation. IVC: Unremarkable. OTHER FINDINGS: None. IMPRESSION: Suboptimal study due to overlying bowel gas. Heterogeneous mildly echogenic liver. Gallstones without ultrasound evidence of acute cholecystitis or biliary obstruction. Bilateral renal cysts.
[2017-07-16] MEDS ORDERED: POLYETHYLENE GLYCOL 3350 17 GM/Dose PACKET PO SCH (11:15)
[2017-07-16 12:28] VITALS: BP 110/45; PULSE 65; TEMP 98.5
--- NOTE | 2017-07-16 13:44 | CP.PCM.PN ---
Subjective - Date & Time of Evaluation Date of Evaluation: 07/16/17 Time of Evaluation: 10:10 - Subjective Subjective: Seen and examined at the bedside earlier today, chart review. Patient went for abdominal ultrasound this morning which reportedpositive gallstones, CBD measures 3.8 no stones or dilatation and renal cysts.patient also went for MRI of the brain which was negative. Patient still reports right lower quadrant pain, no reports of BM. patient has history of postherpetic neuralgia, patient endorses that shingles were in the right lower quadrant. Patient tolerating oral intake. Denies nausea, vomiting, shortness of breath or chest pain. Objective - Vital Signs/Intake and Output Vital Signs (last 24 hours): Temp Pulse Resp BP Pulse Ox 98.5 F 65 18 110/45 L 96 07/16/17 12:00 07/16/17 12:00 07/16/17 12:00 07/16/17 12:00 07/16/17 06:00 Intake and Output: 07/16/17 07/16/17 06:59 18:59 Intake Total 0 Balance 0 - Medications Medications: Current Medications Aspirin (Ecotrin) 81 mg PO DAILY [facility] Last Admin: 07/16/17 10:53 Dose: 81 mg Calcium/Vitamin D (Oscal-D 250 Mg-125 Units Tab) 1 tab PO DAILY [facility] Last Admin: 07/16/17 10:53 Dose: 1 tab Enoxaparin Sodium (Lovenox) 40 mg SC DAILY [facility] PRN Reason: Protocol Last Admin: 07/16/17 10:52 Dose: 40 mg Folic Acid (Folic Acid) 1 mg PO DAILY [facility] Last Admin: 07/16/17 10:53 Dose: 1 mg Levothyroxine Sodium (Synthroid) 25 mcg PO ACB [facility] Last Admin: 07/16/17 10:53 Dose: 25 mcg Memantine (Namenda) 5 mg PO DAILY [facility] Last Admin: 07/16/17 10:54 Dose: 5 mg Metoprolol Succinate (Toprol Xl) 25 mg PO DAILY [facility] Last Admin: 07/16/17 10:53 Dose: 25 mg Polyethylene Glycol (Miralax) 17 gm PO DAILY [facility] Last Admin: 07/16/17 12:40 Dose: 17 gm Pregabalin (Lyrica) 25 mg PO TID [facility] Last Admin: 07/16/17 10:54 Dose: 25 mg Ramipril (Altace) 5 mg PO DAILY [facility] Last Admin: 07/16/17 10:53 Dose: 5 mg - Labs Labs: PT 11.3 SECONDS (9.4-12.5) 07/14/17 18:10 INR 0.99 (0.93-1.08) 07/14/17 18:10 APTT 31.7 Seconds (25.1-36.5) 07/14/17 18:10 - Constitutional Appears: No Acute Distress - Head Exam Head Exam: NORMOCEPHALIC - Eye Exam Eye Exam: Normal appearance. absent: Scleral icterus - ENT Exam ENT Exam: Mucous Membranes Moist - Neck Exam Neck Exam: Normal Inspection - Respiratory Exam Respiratory Exam: NORMAL BREATHING PATTERN. absent: Respiratory Distress - Cardiovascular Exam Cardiovascular Exam: +S1, +S2 - GI/Abdominal Exam GI & Abdominal Exam: Soft, Tenderness (right lower quadrant tenderness on deep palpation,no rebound or guarding), Normal Bowel Sounds. absent: Guarding, Organomegaly, Rebound - Extremities Exam Extremities Exam: absent: Calf Tenderness, Pedal Edema - Neurological Exam Neurological Exam: Alert, Awake, Oriented x3 (periods of confusion) - Skin Skin Exam: Dry, Warm Assessment and Plan - Assessment and Plan (Free Text) Assessment: Assessment: Altered mental status, ct scan head, no bleed or infarct, (+) colloid cyst Elevated BNP, s/p Lasix Right quadrant abdominal pain, may be secondary to postherpetic neuralgic pain, patient reports pain has been over a year., CT scan no acute findings. Also consider cholelithiasis but ultrasound negative, no CBD dilatation, also consider hepatic congestion, history of elevated BNP. History of lymphoma History of dementia History of colon polyps Splenomegaly Compression fracture and T12 noted on CT scan Plan: diet as tolerated Pain management Started MiraLAX daily On Lyrica on On aspirin neurology FU Seen and discussed with Dr. Garduno.
--- NOTE | 2017-07-16 14:36 | PN ---
DATE: 07/16/2017 REASON FOR CONSULTATION AND FOLLOWUP: Cardiac evaluation, rule out congestive heart failure, admitted with altered mental status. SUBJECTIVE: The patient denies any chest pain, shortness of breath, or any palpitations. Weaned for MRI. OBJECTIVE: GENERAL: Not in apparent distress. VITAL SIGNS: Temperature afebrile, heart rate , and blood pressure 146/80. HEENT: PERRLA, intact. NECK: Supple. No carotid bruits or thyromegaly. CHEST: Clear to auscultation. HEART: S1 and S2, regular. ABDOMEN: Soft. EXTREMITIES: Clubbing and cyanosis negative. LABORATORY DATA: Blood workup as follows: WBC , hemoglobin 13.7, hematocrit 37.1, and platelet count 173. Chemistry shows sodium 134, potassium 3.9, chloride 97, CO2 of 24, anion gap of 15. BUN 17, creatinine 1.1. Admitting BNP 1030. The patient had echocardiography done yesterday that showed normal LV size, ejection fraction 45%, mild aortic regurgitation, severe supravalvular aortic stenosis, mild mitral regurgitation, mild tricuspid regurgitation, RV systolic pressure of 41. on CAT scan of the head noted. IMPRESSION: An 82-year-old male with a history of possible lymphoma, hereditary spherocytosis, abdominal pain, and splenomegaly, admitted with mental status change, history of postherpetic neuralgia, hypertension. CAT scan shows possible . He is going for an MRI. Echocardiogram shows severe aortic stenosis, decreased left ventricular function, mild mitral regurgitation, mild tricuspid regurgitation, ejection fraction of 45%, and right ventricular systolic pressure of 41. RECOMMENDATION: We will add low dose of MARSHAL inhibitors, continue beta-alina, and continue Synthroid. No complaint of ischemia, angina, or arrhythmia. Further recommendations will be made depending upon the hospital course. We will repeat chest x-ray, PA and lateral. We will follow with you. Thank you Dr. Rico for providing us the opportunity in taking care of the patient, Waylon Thomas. Khurram Duran MD
--- NOTE | 2017-07-17 03:05 | DS ---
HISTORY OF PRESENT ILLNESS: Patient has no complaints of any chest pain or shortness of breath. No headache or dizziness. He was initially admitted to the hospital because of the changes in his mental status. The patient was noted to have an abnormality on a CAT scan that look like a colloid cyst. He was evaluated by Neurosurgery and felt no intervention is needed. The patient is also seen by Neurology and is advised that he be started on Namenda for mild cognitive impairment. An MRI of the brain is pending. He has no headaches, no dizziness. PHYSICAL EXAMINATION: GENERAL: He is alert and awake. VITAL SIGNS: Temperature is 98.9, pulse of , respirations 20, O2 saturation 97%. GENERAL: The patient is lying in bed, flat, comfortable. HEENT: No oral lesion. Anicteric sclerae. Moist mucosa. NECK: No JVD, adenopathy, or thyromegaly. CARDIOVASCULAR: S1 and S2, regular. No murmurs, rubs, or gallops. LUNGS: Clear to auscultation bilaterally. No wheeze, rales, or rhonchi. ABDOMEN: Bowel sounds are positive, soft, nontender and nondistended. EXTREMITIES: no cyanosis, clubbing, or edema. ASSESSMENT: 1. Colloid cyst, 5 mm, in the brain. 2. Delirium episode, improved. 3. Mild cognitive impairment. 4. Dyslipidemia. 5. Hypertension. 6. Splenomegaly. 7. History of lymphoma. 8. T12 compression fracture. 9. Spinal stenosis from L3 to S1. PLAN: The patient is comfortable. I did speak to the patient's daughter yesterday. Patient is receiving folic acid. He is on Synthroid for hypothyroidism. Patient is on metoprolol. The patient was seen by Dr. Duran, an echo was done, which showed an EF of 45% with moderate LVH. If the MRI does not show any significant abnormality, we will discharge the patient home. CONDITION: Stable. ACTIVITY: Increase as tolerated. Dusty Rico MD
--- NOTE | 2017-07-17 11:29 | PQF GENQUE ---
This form is a permanent part of the medical record Doctor Trisha, Patient presented with altered mental status---what is the underlying reason for the AMS, was it the Colloid cyst as per your d/s OR mild cognitive impairment (dementia) OR other reason? Please provide your specific answer below. Thank you. mild cognitive impairment Clarification of your documentation is requested to better reflect the severity of illness and intensity of treatment of your patient. Indicators present [] Specify: [] [] Specify: [] [] Specify: [] [] Specify: [] Location in the medical record that reflects the above clinical findings: [] Treatment Provided: [] PHYSICIAN'S RESPONSE Based on your medical judgment of the clinical indicators outlined above please clarify the following: [] Practitioner response [] If unable to determine, please check the box, sign and date. Present On Admission (POA) Indicator: [] Present at the time of admission [] Not present at the time of admission [] Clinically Undetermined In responding to this query, please exercise your independent professional judgment. The fact that a question is asked does not imply that any particular answer is desired or expected. Thank you for your clarification on this documentation. If you have any questions please call:[ ] * Thank you, [ ]KO ADLERdata warehouse administrator MARCO
--- NOTE | 2017-07-17 11:33 | PQF CHF ---
This form is a permanent part of the medical record Dr. Rico, Acute CHF per ERD with elevated BNP. Please indicate the type of CHF, was it systolic, diastolic, or combined? Please state below. Thank you. no CHF Clarification of your documentation is requested to better reflect the severity of illness and intensity of treatment of your patient. Indicators present [x] Diagnosis of CHF and/or history of CHF [x] BNP > 200 [] Imaging Finding of Pulmonary Edema /Pleural Effusions [] Fluid/Volume Overload [] Pitting edema [] Ejection Fraction < 40% (Indicative of Systolic Heart Failure) [] Ejection Fraction > 40% (Indicative of Diastolic Heart Failure) [] Dyspnea / Orthopenea / Paroxysmal Nocturnal Dyspnea [] Other: Location in the medical record that reflects the above clinical findings: [] Treatment Provided: [] lasix PHYSICIAN'S RESPONSE Based on your medical judgment of the clinical indicators outlined above, are you treating this patient for a known or suspected: [] Acute CHF [] Systolic [] Diastolic [] Combined [] Chronic CHF [] Systolic [] Diastolic [] Combined [] Acute on Chronic CHF []Systolic [] Diastolic [] Combined [] CHF due hypertension [] Acute systolic []Chronic systolic [] Acute/ chronic systolic [] Other, please indicate: [] [] If Unable to Determine, please check the box, sign and date. Present On Admission (POA) Indicator: [] Present at the time of admission [] Not present at the time of admission [] Clinically Undetermined In responding to this query, please exercise your independent professional judgment. The fact that a question is asked does not imply that any particular answer is desired or expected. Thank you for your clarification on this documentation. If you have any questions please call:[ ] * Thank you, [ ]sadia ADLERcustom clothier MARCO
== END 2017-07-16 17:38 | disposition home or self-care (01) | DRG 884 ==
LOC: ED 17:26 → ERH 21:33 → 3RSO 22:29
PROVIDERS: ADMIT Internal Medicine Nephrology; ATTEND Internal Medicine Nephrology
DX: F03.90 Unspecified dementia, unspecified severity, without behavioral disturbance, psychotic disturbance, mood disturbance, and anxiety (principal); F05 Delirium due to known physiological condition; C85.10 Unspecified B-cell lymphoma, unspecified site; M48.54XA Collapsed vertebra, not elsewhere classified, thoracic region, initial encounter for fracture; B02.29 Other postherpetic nervous system involvement; G93.0 Cerebral cysts; I10 Essential (primary) hypertension; I08.3 Combined rheumatic disorders of mitral, aortic and tricuspid valves; R16.1 Splenomegaly, not elsewhere classified; M48.061 Spinal stenosis, lumbar region without neurogenic claudication; E03.9 Hypothyroidism, unspecified; E78.5 Hyperlipidemia, unspecified; K80.20 Calculus of gallbladder without cholecystitis without obstruction; K21.9 Gastro-esophageal reflux disease without esophagitis; D58.0 Hereditary spherocytosis; Z87.891 Personal history of nicotine dependence; Z86.010 Personal history of colon polyps

== ENCOUNTER 2017-07-18 14:29 | Inpatient (IN) | payer MEDICARE, BC ==
[2017-07-18 14:30] VITALS: BMI 22.8
--- NOTE | 2017-07-18 15:18 | ED PDOC ---
Arrival/HPI - General Chief Complaint: Abnormal Labs Time Seen by Provider: 07/18/17 14:45 Historian: Patient - History of Present Illness Narrative History of Present Illness (Text): 07/18/17 15:14 82 year old male, with past medical history of hemolytic anemia and CLL, was referred to the Emergency department by PMD for reported declining renal function noted on blood test done by PMD, Dr. Magaña, yesterday. Patient reports having CT of Abdomen/Pelvis with IV contrast done on 07/14/18. Patient is currently asymptomatic and denies any acute complaints. Patient informs mild generalized fatigue. Patient denies smoking or drinking alcohol. Patient denies any fever, chills, nausea, vomiting, diarrhea, abdominal pain, chest pain, shortness of breath or any other complaints. PMD: Dr. Magaña Time/Duration: 24 hours Symptom Onset: Gradual Symptom Course: Unchanged Activities at Onset: Light Context: Other (referred by PMD) Past Medical History - Provider Review Nursing Documentation Reviewed: Yes - Infectious Disease Hx of Infectious Diseases: None - Tetanus Immunization Tetanus Immunization: Unknown - Cardiac Hx Cardiac Disorders: Yes Hx Hypertension: Yes - Pulmonary Hx Respiratory Disorders: No Hx Asthma: No - Neurological Hx Neurological Disorder: Yes Hx Dementia: Yes - HEENT Hx HEENT Disorder: No - Renal Hx Renal Disorder: No - Endocrine/Metabolic Hx Endocrine Disorders: No - Hematological/Oncological Hx Blood Disorders: Yes Hx Chemotherapy: Yes Hx Shingles: Yes Other/Comment: lymphoma - Integumentary Hx Dermatological Disorder: No - Musculoskeletal/Rheumatological Hx Musculoskeletal Disorders: Yes Hx Falls: No Hx Spinal Stenosis: Yes - Gastrointestinal Hx Gastrointestinal Disorders: No - Genitourinary/Gynecological Hx Genitourinary Disorders: No - Psychiatric Hx Psychophysiologic Disorder: Yes Hx Depression: Yes Hx Substance Use: No - Surgical History Other/Comment: Enlarged spleen - being seen by Dr Jj and Dr Mcgee - Anesthesia Hx Anesthesia: Yes Hx Anesthesia Reactions: No Hx Malignant Hyperthermia: No - Suicidal Assessment Feels Threatened In Home Enviroment: No Family/Social History - Physician Review Nursing Documentation Reviewed: Yes Family/Social History: No Known Family HX Smoking Status: Former Smoker Hx Alcohol Use: Yes Hx Substance Use: No Hx Substance Use Treatment: No Allergies/Home Meds Allergies/Adverse Reactions: Allergies onabotulinumtoxinA [From Botox] Allergy (Verified 07/14/17 17:37) DIZZINESS Home Medications: Home Meds Medication Instructions Recorded Confirmed Quetiapine Fumarate [Seroquel] 25 mg PO HS 03/17/15 07/18/17 Folic Acid 1 mg PO DAILY 11/29/15 07/18/17 Levothyroxine [Synthroid] 0.025 mg PO DAILY 02/02/16 07/18/17 Mirtazapine [Remeron] 15 mg PO HS 02/02/16 07/18/17 Metoprolol Succinate 25 mg PO DAILY 08/13/16 07/18/17 Pregabalin [Lyrica] 25 mg PO TID 08/13/16 07/18/17 Review of Systems - Physician Review All systems were reviewed & negative as marked: Yes - Review of Systems Constitutional: Fatigue. absent: Fevers Eyes: Normal ENT: Normal Respiratory: Normal. absent: SOB Cardiovascular: Normal. absent: Chest Pain Gastrointestinal: Normal. absent: Abdominal Pain, Diarrhea, Nausea, Vomiting Genitourinary Male: Normal Musculoskeletal: Normal Skin: Normal Neurological: Normal Endocrine: Normal Hemo/Lymphatic: Normal Psychiatric: Normal Physical Exam Vital Signs Reviewed: Yes Vital Signs Temp Pulse Resp BP Pulse Ox 07/18/17 17:21 98.0 F 71 16 110/76 98 07/18/17 14:39 97.3 F L 64 18 106/65 96 Temperature: Afebrile Blood Pressure: Normal Pulse: Regular Respiratory Rate: Normal Appearance: Positive for: Well-Appearing, Non-Toxic, Comfortable Pain Distress: None Mental Status: Positive for: Alert and Oriented X 3 - Systems Exam Head: Present: Atraumatic, Normocephalic Pupils: Present: PERRL Extroacular Muscles: Present: EOMI Conjunctiva: Present: Normal Mouth: Present: Moist Mucous Membranes Neck: Present: Normal Range of Motion Respiratory/Chest: Present: Clear to Auscultation, Good Air Exchange. No: Respiratory Distress, Accessory Muscle Use, Wheezes Cardiovascular: Present: Regular Rate and Rhythm (with loud systolic murmur), Normal S1, S2. No: Murmurs Abdomen: Present: Tenderness (minimal lower quadrant), Normal Bowel Sounds. No : Distention, Peritoneal Signs Back: Present: Normal Inspection Upper Extremity: Present: Normal Inspection, NORMAL PULSES. No: Cyanosis, Edema Lower Extremity: Present: Normal Inspection, NORMAL PULSES. No: Edema Neurological: Present: GCS=15, CN II-XII Intact, Speech Normal Skin: Present: Warm, Dry, Normal Color. No: Rashes Psychiatric: Present: Alert, Oriented x 3, Normal Insight, Normal Concentration Medical Decision Making ED Course and Treatment: 07/18/17 15:21 Impression: 82 year old male presents to the Emergency department for medical clearance. May have temporary ATN due to IV contrast. Plan: -- Labs -- Reassess and disposition Progress Notes: 07/18/17 15:28 - Lab Interpretations Lab Results: 07/18/17 15:15 07/18/17 15:15 Lab Results 07/18/17 15:15: Sodium 133, Potassium 4.3, Chloride 98, Carbon Dioxide 20 L, Anion Gap 19, BUN 62 H, Creatinine 3.3 H, Est GFR ( Amer) 22, Est GFR ( Non-Af Amer) 18, Random Glucose 89, Calcium 8.9 07/18/17 15:15: WBC 12.8 H D, RBC 3.98, Hgb 12.3 L, Hct 34.9 L, MCV 87.7, MCH 30.9, MCHC 35.2, RDW 13.8, Plt Count 138, MPV 10.5, Gran % 81.9 H, Lymph % (Auto ) 11.6 L, [place] % (Auto) 5.9, Eos % (Auto) 0.4 L, Baso % (Auto) 0.2, Gran # 10.52 H, Lymph # (Auto) 1.5, [place] # (Auto) 0.8 H, Eos # (Auto) 0.1, Baso # (Auto ) 0.02 - Medication Orders Current Medication Orders: Sodium Chloride (Sodium Chloride 0.9%) 1,000 mls @ 200 mls/hr IV .Q5H MUNA Last Admin: 07/18/17 15:59 Dose: 200 mls/hr eMAR Start Stop Document 07/18/17 15:59 HP (Rec: 07/18/17 15:59 HP [id number]) Intravenous Solution Start Date 07/18/17 Start Time 15:59 - Scribe Statement The provider has reviewed the documentation as recorded by the Scribhumaira Thompson. All medical record entries made by the Scribe were at my direction and personally dictated by me. I have reviewed the chart and agree that the record accurately reflects my personal performance of the history, physical exam, medical decision making, and the department course for this patient. I have also personally directed, reviewed, and agree with the discharge instructions and disposition. Disposition/Present on Arrival - Present on Arrival Any Indicators Present on Arrival: No History of DVT/PE: No History of Uncontrolled Diabetes: No Urinary Catheter: No History of Decub. Ulcer: No History Surgical Site Infection Following: None - Disposition Have Diagnosis and Disposition been Completed?: Yes Diagnosis: Acute renal failure Disposition: HOSPITALIZED Disposition Time: 17:45 Patient Plan: Admission Patient Problems: Current Active Problems Problem Status Onset Acute renal failure Acute Condition: STABLE
[2017-07-18 15:37] LABS: BASO # 0.02 K/mm3 (0.0-2.0); BASO % 0.2 % (0.0-3.0); EOS # 0.1 (0.0-0.7); EOS % 0.4 % (1.5-5.0); GRAN # 10.52 (1.4-6.5); GRAN % 81.9 % (50.0-68.0); HEMOGLOBIN 12.3 g/dL (14.0-18.0); LYMPH # 1.5 (1.2-3.4); LYMPH % 11.6 % (22.0-35.0); MEAN CELL VOLUME 87.7 fl (80.0-105.0); MEAN CORPUSCULAR HEMOGLOBIN 30.9 pg (25.0-35.0); MEAN CORPUSCULAR HGB CONC 35.2 g/dl (31.0-37.0); MEAN PLATELET VOLUME 10.5 fl (7.0-11.0); MONO # 0.8 (0.1-0.6); MONO % 5.9 % (1.0-6.0); RBC 3.98 10^6/uL (3.5-6.1); RED CELL DISTRIBUTION WIDTH 13.8 % (11.5-14.5); WHITE BLOOD COUNT 12.8 10^3/ul (4.5-11.0)
[2017-07-18 15:39] LABS: CALCIUM 8.9 mg/dL (8.4-10.5)
[2017-07-18] MEDS ORDERED: Sodium Chloride 0.9% 1,000 ML IV SCH (16:00)
[2017-07-18] MEDS: Sodium Chloride 0.9% 1,000 ML IV SCH (21:22)
[2017-07-19 07:22] LABS: HEMOGLOBIN 10.9 g/dL (14.0-18.0); MEAN CELL VOLUME 87.5 fl (80.0-105.0); MEAN CORPUSCULAR HEMOGLOBIN 30.4 pg (25.0-35.0); MEAN CORPUSCULAR HGB CONC 34.7 g/dl (31.0-37.0); MEAN PLATELET VOLUME 10.4 fl (7.0-11.0); RBC 3.59 10^6/uL (3.5-6.1); RED CELL DISTRIBUTION WIDTH 13.7 % (11.5-14.5); WHITE BLOOD COUNT 7.7 10^3/ul (4.5-11.0)
[2017-07-19 08:27] LABS: ALB/GLOB RATIO 1.3 (1.1-1.8); ALBUMIN 3.2 g/dL (3.0-4.8); CALCIUM 8.2 mg/dL (8.4-10.5); MAGNESIUM 2.3 mg/dL (1.7-2.2)
[2017-07-19] MEDS: Levothyroxine 25 MCG TAB PO SCH (10:00)
[2017-07-19] MEDS: Calcium-Vit D 250 mg-125 Units Tab UD PO SCH (10:00)
[2017-07-19] MEDS: Sodium Chloride 0.9% 1,000 ML IV SCH (10:02)
--- NOTE | 2017-07-19 14:19 | RAD ---
HISTORY: Abdominal pain COMPARISON: None FINDINGS: BOWEL: The bowel gas pattern is nonspecific. No bowel dilatation. BONES: Normal. OTHER FINDINGS: There are multiple phleboliths in the right hemipelvis. IMPRESSION: Nonobstructive bowel-gas pattern.
[2017-07-20] MEDS: Calcium-Vit D 250 mg-125 Units Tab UD PO SCH (09:23)
[2017-07-20] MEDS: Levothyroxine 25 MCG TAB PO SCH (09:23)
[2017-07-20] MEDS ORDERED: guaiFENesin 100 mg/5 ml Syrup UD PO PRN (11:30)
[2017-07-20 12:09] LABS: ALB/GLOB RATIO 1.4 (1.1-1.8); ALT/SGPT 31 U/L (7-56); AST/SGOT 21 U/L (17-59); BLOOD UREA NITROGEN 27 mg/dL (7-21); CALCIUM 9.8 mg/dL (8.4-10.5); GFR AFRICAN-AMERICAN > 60; GFR NON-AFRICAN AMERICAN > 60
[2017-07-20] MEDS ORDERED: Levothyroxine 25 MCG TAB PO SCH (20:17)
--- NOTE | 2017-07-20 23:32 | PN ---
DATE: 07/20/2017 SUBJECTIVE: He is comfortable in bed. He is in no acute distress. He is disoriented. 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 He is conversant. No nausea. No vomiting. Renal functions have improved. Today, creatinine is 1.1; on admission, it was 3.3. REVIEW OF SYSTEMS: As per HPI. Rest of 12-point review of systems reviewed and negative. PHYSICAL EXAMINATION: GENERAL: Comfortable in bed, in no acute distress. VITAL SIGNS: Temperature 98.7, heart rate 68 per minute, blood pressure 125/60, respiratory rate 18 per minute, oxygen saturation 98% on room air. HEENT: Normal. NECK: No lymphadenopathy. CHEST: Air entry present and equal bilaterally. No added sounds. CARDIOVASCULAR: S1, S2 normal. No murmur. No gallop. ABDOMEN: Soft, nontender. No hepatosplenomegaly. EXTREMITIES: No edema. CENTRAL NERVOUS SYSTEM: Awake, alert. Not oriented, confused. He is conversant. No focal sensory or motor deficits. MEDICATIONS: Aspirin 81 mg daily, Robitussin q.4 hour p.r.n., levothyroxine 25 mcg daily, Namenda 5 mg daily, calcium one tablet daily. ASSESSMENT: 1. Acute renal failure, resolved. 2. Delirium, dementia. 3. Hypertension. 4. History of non-Hodgkin lymphoma. PLAN: Renal function, resolved. He developed new-onset delirium. He has baseline dementia. We will get the Psych consult. Continue Synthroid 25 mcg daily, continue Namenda 5 mg daily. He had leukocytosis on admission, which has resolved. White count is normal now. Mild anemia. Renal functions are normal now. Electrolytes are normal. Rosemary Sheldon MD
--- NOTE | 2017-07-20 23:43 | HP ---
DATE OF EXAM: 07/19/2017 HISTORY OF PRESENT ILLNESS: Mr. Connors is an 82-year-old male, admitted to the hospital indicative of declining renal function. He has a history of CLL. He had a CT abdomen and pelvis with IV contrast done on 07/14/2017. Creatinine in the ER was elevated at 3.3. He denies any drinking, smoking. No fever, no chills, no rigors, no abdominal pain. He has baseline dementia. Hypertension, blood pressure control on current medication. Also history of shingles, no active issues right now. PAST MEDICAL HISTORY: Hypertension, shingles, history of non-Hodgkin lymphoma, history of chemotherapy, history of spinal stenosis, depression. PAST SURGICAL HISTORY: None. PERSONAL HISTORY: Former smoker. No history of alcohol abuse. SOCIAL HISTORY: Lives at home. FAMILY HISTORY: Noncontributory. ALLERGIES: BOTOX CAUSING DIZZINESS. HOME MEDICATIONS: Seroquel 25 mg p.o. at bedtime, folic acid 1 mg daily, Synthroid 25 mcg daily, Remeron 15 mg p.o. at bedtime, metoprolol 25 mg daily, Lyrica 25 mg p.o. t.i.d. REVIEW OF SYSTEMS: As per HPI. Rest of the 12-point review of systems reviewed and negative. PHYSICAL EXAMINATION: GENERAL: Comfortable in bed, in no acute distress. VITAL SIGNS: Temperature is 97.3, heart rate is 64 per minute, respiratory rate 18 per minute, blood pressure 105/65, and pulse oximetry is 96% on room air. HEENT: Normal. NECK: No lymphadenopathy. CHEST: Air entry present, equal and bilateral. No added sounds. CARDIOVASCULAR: S1 and S2 normal. No murmur. No gallop. ABDOMEN: Soft and nontender. Splenomegaly present. EXTREMITIES: No edema. SKIN: No petechiae. No rash. LABORATORY DATA: White count 12.8, hemoglobin 12.3, hematocrit 34.9, platelet 138. Sodium 133, potassium 4.3, BUN 62, creatinine 3.3. ASSESSMENT: 1. Acute renal failure. 2. History of non-Hodgkin lymphoma. 3. Recent CAT scan of the abdomen with intravenous contrast. 4. Baseline dementia. 5. Hypertension. PLAN: He will be admitted to the hospital. IV fluid at 60 mL an hour. We will monitor the renal functions. Levothyroxine 25 mcg daily, Namenda 5 mg daily, aspirin 81 mg daily, calcium one tablet daily. He is complaining of cough, we will give the cough syrup q. 4 hours p.r.n. Heart-healthy diet. X-ray of abdomen did not show any obstruction. Rosemary Sheldon MD
[2017-07-21 08:21] VITALS: O2SAT 97
[2017-07-21] MEDS: Calcium-Vit D 250 mg-125 Units Tab UD PO SCH (09:58)
[2017-07-21 18:32] VITALS: BP 152/90; PULSE 70; RESP 20; TEMP 97.7
--- NOTE | 2017-07-22 04:34 | DS ---
HISTORY OF PRESENT ILLNESS: This is an 82-year-old male who had come in to the hospital because of acute kidney injury. The patient was placed on IV fluids and had improvement of his symptoms. He currently feels well. He has no complaints of any chest pain, shortness of breath, headaches. It was felt that his acute kidney injury was felt to be related to prerenal azotemia. PHYSICAL EXAMINATION: VITAL SIGNS: Temperature is 98, pulse is 47, blood pressure 161/85, respirations 16, O2 saturation 98%. GENERAL: The patient is lying in bed, flat, comfortable. HEENT: No oral lesion. Anicteric sclerae. Moist mucosa. NECK: No JVD, adenopathy, or thyromegaly. CARDIOVASCULAR: S1 and S2, regular. No murmurs, rubs, or gallops. LUNGS: Clear to auscultation bilaterally. No wheeze, rales, or rhonchi. ABDOMEN: Bowel sounds are positive, soft, nontender and nondistended. EXTREMITIES: no cyanosis, clubbing or edema. ASSESSMENT: 1. Acute kidney injury, resolved. 2. Colloid cyst, 5 mm, in the brain. 3. Mild cognitive impairment. 4. Dyslipidemia. 5. Hypertension. 6. Splenomegaly. 7. History of lymphoma. 8. T12 compression fracture. 9. Spinal stenosis from L3 to S1. PLAN: The patient is off IV fluids at this point. He is on Synthroid for hypothyroidism. He is receiving vitamin D, calcium for his osteoporosis for vertebral fracture. He is on aspirin daily. The patient is receiving memantine for his mild cognitive impairment. He is on a heart-healthy diet. The patient is going to be seen by Physical Therapy. Dusty Rico MD
--- NOTE | 2017-07-22 08:43 | CON ---
DATE: 07/21/2017 He is being seen today for a consultation. My co-signer is Dr. Hodges. PRESENTATION: Patient is an 82-year-old white male seen at bedside. He was admitted to the hospital on 07/18/2017, referred by his primary medical doctor, Dr. Magaña, due to reported declining in renal function when he had seen his primary doctor yesterday, the day before admission. Consultation was called due to delirium. Patient was oriented x2 when seen. He was very pleasant and cooperative, was able to converse and give me information about his . He lives with his sister in a house. What, he feels, brought him into the hospital is pain in his right hand side, which just really hurts all the time. He states he thinks it is due to the kidney problem that he has. He is on social security and he has been retired. 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 He denies any financial issues at this time. He denies any kind of a psychiatric background in terms of he has never seen a psychiatrist, never been on psychiatric medications, never had a suicidal attempt or anything of that sort. The only times he has had any difficulties, which he feels, are natural are that his 5 years ago. Of their 4 children, 2 of them have already , and these are the things that he thinks about. His oldest child and youngest child are alive, but two have . He has lost 2 grandchildren. His brother had 2 sons who . So he has experienced some losses; however, he does not feel that he is depressed and he just feels that he is coping. Medically, patient has a history of hemolytic anemia and kidney disease. He denies any legal problems. He indicates that, until he stopped driving, he had a perfect driving record. He never had a ticket for any reason at all whatsoever. He denies any mental health issues within his family. He grew up in [place]. He indicates his childhood was good, they were happy. He is number 7 of 8 siblings, and he came over here when he was 17 because he had relatives here and he wanted to join them. 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 He met his after his tour of duty when he was vacationing in the [facility]. They had a happy marriage and had 4 children, two of whom were now . 5 years ago, and this is the source of lost to the patient. He talks a lot about different things that happened in his life living in [place] as well as his service. He indicates that he feels he has had a good and he is happy with how things have turned out aside from the losses that he has experienced. Vital signs include temperature of 97.4, blood pressure 145/89, respiratory rate of 18, and O2 sat of 97%. Nurses notes were reviewed and collateral information was received from nurses. Patient overall has been fairly cooperative. It does appear that at night, he is consistently getting up out of bed without assistance and he is unsteady on his feet, it is not safe, and he is not directable, he is confused at that time. MENTAL STATUS EXAM: Patient is alert and oriented x3. Eye contact is good. Behavior is cooperative. Speech, rate and volume all within normal limits. He is slightly hard of hearing, so I had to repeat myself loudly at times, but his thought processes at this time are logical and coherent. He denies being suicidal or homicidal. Denies the presence of hallucinations, delusions, or paranoia. His concentration and progress are good. His memory, both short and long-term, appears to be grossly adequate. He has some areas where he has some difficulty; but on the whole, he is able to remember quite a few things in regards to his , current and past. His appetite, he states, has been poor lately; however, he feels he is sleeping at night. When I questioned him as to whether or not he felt he had any periods of confusion, he said he did not. DIAGNOSTIC IMPRESSION: There is no documented history of dementia, so at this point, I feel that the delirium is secondary to medical condition. PLAN: Patient denies being suicidal or homicidal and does not appear any danger to himself or others. He has some behavioral disturbance in terms of getting up and being confused at night, and having difficulty being directed, but other than that, he has been pleasant and cooperative. I added Seroquel 12.5 mg one at bedtime to see if this helps with the nighttime confusion issue. Additionally, p.r.n. Ativan 0.5 mg p.o. and IM q. 6 hours was added should that become necessary; it does not appear that his behavior is going in that direction, but it is available should it be needed. Psychiatry will continue to follow this patient daily. Thank you for the consult. Althea Velasquez APN Jessica Hodges MD
== END 2017-07-21 19:01 | disposition home or self-care (01) | DRG 683 ==
LOC: ED 14:29 → ERH 16:18 → 5RSO 20:36
PROVIDERS: ADMIT Internal Medicine Nephrology; ATTEND Internal Medicine Nephrology
DX: N17.9 Acute kidney failure, unspecified (principal); M48.54XA Collapsed vertebra, not elsewhere classified, thoracic region, initial encounter for fracture; F03.90 Unspecified dementia, unspecified severity, without behavioral disturbance, psychotic disturbance, mood disturbance, and anxiety; E78.5 Hyperlipidemia, unspecified; I10 Essential (primary) hypertension; M48.061 Spinal stenosis, lumbar region without neurogenic claudication; Z79.899 Other long term (current) drug therapy; Z85.6 Personal history of leukemia; Z85.72 Personal history of non-Hodgkin lymphomas; Z86.19 Personal history of other infectious and parasitic diseases; Z87.891 Personal history of nicotine dependence; Z92.21 Personal history of antineoplastic chemotherapy; F32.89 Other specified depressive episodes; R40.2412 Glasgow coma scale score 13-15, at arrival to emergency department; G93.0 Cerebral cysts; R16.1 Splenomegaly, not elsewhere classified; G31.84 Mild cognitive impairment of uncertain or unknown etiology; M48.07 Spinal stenosis, lumbosacral region; E03.9 Hypothyroidism, unspecified; M81.0 Age-related osteoporosis without current pathological fracture; H91.90 Unspecified hearing loss, unspecified ear

== ENCOUNTER 2017-12-09 10:00 | Day surgery (SDC) | payer MEDICARE, BC ==
[2017-12-05 09:07] VITALS: BMI 23.2
[2017-12-09 11:01] VITALS: TEMP 97.7
[2017-12-09] MEDS ORDERED: Propofol 10 mg/ml Inj (20 ML) ONE ×2 (12:08)
[2017-12-09] MEDS ORDERED: Sodium Chloride 0.9% 1,000 ML IV SCH (12:45)
[2017-12-09 13:29] VITALS: BP 142/70; PULSE 59; RESP 18; O2SAT 100
== END 2017-12-09 14:23 | disposition home or self-care (01) ==
LOC: ENDO 10:00
PROVIDERS: ATTEND Internal Medicine Gastroenterology
DX: K29.50 Unspecified chronic gastritis without bleeding (principal); B96.81 Helicobacter pylori [H. pylori] as the cause of diseases classified elsewhere; K44.9 Diaphragmatic hernia without obstruction or gangrene; K22.2 Esophageal obstruction
CPT/HCPCS: 43239; 88305; 88342; J2001; J2704; J7030; J7040

== ENCOUNTER 2018-08-20 12:17 | Outpatient (CLI) | payer MEDICARE, BC | END 2018-08-20 12:18 | disposition home or self-care (01) | LOC: OPLAB 12:17 ==